=== PATIENT | male | born 1970 | race Caucasian/White ===

== ENCOUNTER → 2016-05-22 | Outpatient (CLI) | payer OTHER ==
[~2016-05-22] MED LIST: ISOVUE-370 76% 100ML VIAL (Q9967) As Ordered ONE
--- NOTE | 2016-05-22 18:05 | REP ---
Clinical: Abnormalities on recent chest x-ray. Technique: Axial contrast enhanced images from the thoracic inlet to the upper abdomen using 100 ml Isovue 370 intravenous contrast material with coronal and sagittal re-formations. Findings: The bilateral lung olmstead are essentially well-aerated, clear, and without consolidation, peribronchial thickening to suggest acute bronchitis, nodule or mass lesion. Tracheobronchial tree is patent and without bronchiectasis. No pleural effusion/reaction or pneumothorax. No adenopathy. Mediastinum including heart/pericardium and thoracic aorta appear relatively normal and without cardiomegaly or pericardial effusion and no evidence for thoracic aortic aneurysm or dissection. Musculoskeletal structures are intact. Limited evaluation of the upper abdomen demonstrates normal bilateral adrenal glands. Impression: No acute mediastinal or pleuroparenchymal process. No significant chronic interstitial changes appreciated. No evidence for residual bronchitis or reactive airway disease. Signed by Dick Dela Cruz MD 05/22/2016 05:57 P
== END ==
LOC: M RAD 17:15
PROVIDERS: ATTEND Physician Assistant
DX: R93.8 Abnormal findings on diagnostic imaging of other specified body structures (principal)
CPT/HCPCS: 71260; Q9967

== ENCOUNTER → 2016-08-07 | Outpatient (REF) | payer OTHER ==
[2016-08-07 18:35] LABS: ALBUMIN 3.8 GM/DL (3.2-5.2); ALBUMIN/GLOBULIN RATIO 1.09 (1.00-1.93); ALKALINE PHOSPHATASE 77 U/L (45-117); ALT/SGPT 31 U/L (12-78); ANION GAP 9 MEQ/L (8-16); AST/SGOT 24 U/L (15-37); BILIRUBIN,TOTAL 0.5 MG/DL (0.2-1.0); BLOOD UREA NITROGEN 13 MG/DL (7-18); CALCIUM LEVEL 9.2 MG/DL (8.5-10.1); CARBON DIOXIDE LEVEL 26 MEQ/L (21-32); CHLORIDE LEVEL 101 MEQ/L (98-107); CHOLESTEROL LEVEL 149 MG/DL (<200); CREATININE FOR GFR 1.03 MG/DL (0.70-1.30); GLOMERULAR FILTRATION RATE > 60.0 (>60); GLUCOSE, FASTING 110 MG/DL (70-105); POTASSIUM SERUM 4.3 MEQ/L (3.5-5.1); SODIUM LEVEL 136 MEQ/L (136-145); TOTAL PROTEIN 7.3 GM/DL (6.4-8.2); TRIGLYCERIDES LEVEL 96 MG/DL (<150)
[2016-08-07 19:02] LABS: BASO % 0.5 % (0.0-1.0); EOS # 0.2 K/mm3 (0.0-0.50); EOS % 2.3 % (0.0-3.0); LARGE UNSTAINED CELL # 0.2 K/mm3 (0.0-0.4); LARGE UNSTAINED CELL % 1.7 % (0.0-4.0); LYMPH # 2.1 K/mm3 (1.5-4.5); LYMPH % 22.6 % (24.0-44.0); MEAN CORPUSCULAR HEMOGLOBIN 31.1 pg (27.0-33.0); MEAN CORPUSCULAR HGB CONC 34.6 g/dl (32.0-36.5); MEAN CORPUSCULAR VOLUME 89.7 fl (80.0-96.0); MONO # 0.6 K/mm3 (0.0-0.8); MONO % 6.5 % (0.0-5.0); NEUTROPHILS # 5.7 K/mm3 (1.8-7.7); NEUTROPHILS % 66.3 % (36.0-66.0); PLATELET COUNT, AUTOMATED 247 k/mm3 (150-450); RED CELL DISTRIBUTION WIDTH 12.5 % (11.5-14.5); WHITE BLOOD COUNT 8.6 K/mm3 (4.0-10.0)
== END ==
LOC: M SFHCCAPE 07:03
PROVIDERS: ATTEND Physician Assistant
DX: E78.00 Pure hypercholesterolemia, unspecified (principal)

== ENCOUNTER → 2017-01-30 | Outpatient (CLI) | payer OTHER ==
[2017-01-30 17:05] LABS: BASO % 0.4 % (0.0-1.0); EOS # 0.1 K/mm3 (0.0-0.50); EOS % 1.2 % (0.0-3.0); LARGE UNSTAINED CELL # 0.2 K/mm3 (0.0-0.4); LARGE UNSTAINED CELL % 2.2 % (0.0-4.0); LYMPH # 1.4 K/mm3 (1.5-4.5); LYMPH % 17.4 % (24.0-44.0); MEAN CORPUSCULAR HEMOGLOBIN 31.1 pg (27.0-33.0); MEAN CORPUSCULAR VOLUME 86.5 fl (80.0-96.0); MONO # 0.6 K/mm3 (0.0-0.8); MONO % 6.7 % (0.0-5.0); NEUTROPHILS % 72.1 % (36.0-66.0); PLATELET COUNT, AUTOMATED 236 k/mm3 (150-450); RED CELL DISTRIBUTION WIDTH 11.8 % (11.5-14.5); WHITE BLOOD COUNT 8.2 K/mm3 (4.0-10.0)
--- NOTE | 2017-01-30 17:34 | REP ---
LEFT HIP, TWO VIEWS: There is no evidence of an acute fracture, dislocation or intrinsic bone disease. There is not significant arthritic change. IMPRESSION: No fracture or dislocation. Signed by Km Ruiz MD 01/31/2017 05:37 P
--- NOTE | 2017-01-30 17:43 | REP ---
LEFT KNEE, FIVE VIEWS: FINDINGS: There is no evidence of an acute fracture, dislocation or intrinsic bone disease. There is not significant arthritic change. There is no evidence of significant joint effusion. IMPRESSION: No fracture or dislocation. Signed by Km Ruiz MD 01/31/2017 05:37 P
[2017-01-30 19:27] LABS: ALBUMIN 3.7 GM/DL (3.2-5.2); ALBUMIN/GLOBULIN RATIO 0.95 (1.00-1.93); ALKALINE PHOSPHATASE 97 U/L (45-117); ALT/SGPT 42 U/L (12-78); ANION GAP 9 MEQ/L (8-16); AST/SGOT 20 U/L (15-37); BILIRUBIN,TOTAL 0.4 MG/DL (0.2-1.0); BLOOD UREA NITROGEN 16 MG/DL (7-18); CALCIUM LEVEL 9.5 MG/DL (8.5-10.1); CARBON DIOXIDE LEVEL 27 MEQ/L (21-32); CHLORIDE LEVEL 104 MEQ/L (98-107); CHOLESTEROL LEVEL 115 MG/DL (<200); GLOMERULAR FILTRATION RATE > 60.0 (>60); GLUCOSE, FASTING 101 MG/DL (70-105); POTASSIUM SERUM 3.9 MEQ/L (3.5-5.1); SODIUM LEVEL 140 MEQ/L (136-145); TOTAL PROTEIN 7.6 GM/DL (6.4-8.2); TRIGLYCERIDES LEVEL 95 MG/DL (<150); URIC ACID 4.2 MG/DL (3.5-7.2)
[2017-02-02 00:06] LABS: Lyme Disease IgG/IgM Antibodie <0.91 ISR (0.00-0.90); Lyme Disease IgM Ab Quantitati <0.80 index (0.00-0.79)
== END ==
LOC: M LAB 15:58
PROVIDERS: ATTEND Physician Assistant
DX: M25.562 Pain in left knee (principal)

== ENCOUNTER → 2017-03-28 | Outpatient (CLI) | payer OTHER | LOC: M RAD 10:36 | PROVIDERS: ATTEND Internal Medicine Endocrinology, Diabetes & Metabolism | DX: E05.00 Thyrotoxicosis with diffuse goiter without thyrotoxic crisis or storm (principal) ==

== ENCOUNTER → 2017-05-28 | Outpatient (CLI) | payer OTHER ==
[2017-05-28 18:57] LABS: FREE T4 0.38 NG/DL (0.76-1.46)
== END ==
LOC: M LAB 17:15
DX: M12.9 Arthropathy, unspecified (principal)
CPT/HCPCS: 84443

== ENCOUNTER → 2017-07-30 | Outpatient (CLI) | payer OTHER ==
[2017-07-30 20:20] LABS: THYROID STIMULATING HORMONE 0.018 uIU/ML (0.358-3.740)
[2017-07-30 20:20] LABS: FREE T4 1.29 NG/DL (0.76-1.46)
== END ==
LOC: M LAB 18:05
DX: E05.00 Thyrotoxicosis with diffuse goiter without thyrotoxic crisis or storm (principal)
CPT/HCPCS: 84443

== ENCOUNTER → 2017-08-01 | Outpatient (REF) | payer OTHER ==
[2017-08-01 16:46] LABS: ALBUMIN 3.8 GM/DL (3.2-5.2); ALKALINE PHOSPHATASE 107 U/L (45-117); ALT/SGPT 48 U/L (12-78); ANION GAP 9 MEQ/L (8-16); AST/SGOT 23 U/L (7-37); BILIRUBIN,TOTAL 0.5 MG/DL (0.2-1.0); BLOOD UREA NITROGEN 12 MG/DL (7-18); CARBON DIOXIDE LEVEL 27 MEQ/L (21-32); CHLORIDE LEVEL 101 MEQ/L (98-107); CHOLESTEROL LEVEL 130 MG/DL (<200); CHOLESTEROL RISK RATIO 2.954 (<5); CREATININE FOR GFR 1.09 MG/DL (0.70-1.30); FREE T4 1.32 NG/DL (0.76-1.46); GLOMERULAR FILTRATION RATE > 60.0 (>60); GLUCOSE, FASTING 116 MG/DL (70-100); HDL CHOLESTEROL 44 MG/DL (>40); LDL CHOLESTEROL 73.2 MG/DL (<100); NON-HDL-C 86 MG/DL; POTASSIUM SERUM 3.8 MEQ/L (3.5-5.1); SODIUM LEVEL 137 MEQ/L (136-145); THYROID STIMULATING HORMONE 0.012 uIU/ML (0.358-3.740); TOTAL PROTEIN 7.6 GM/DL (6.4-8.2); TRIGLYCERIDES LEVEL 64 MG/DL (<150)
[2017-08-01 17:14] LABS: BASO # 0.1 10^3/uL (0.0-0.2); BASO % 0.5 % (0.0-1.0); EOS # 0.2 10^3/uL (0.0-0.50); EOS % 1.5 % (0.0-3.0); HEMATOCRIT 39.7 % (42.0-52.0); HEMOGLOBIN 13.3 g/dl (14.0-18.0); IMMATURE GRANULOCYTE % 0.9 % (0-3.0); LYMPH # 1.4 10^3/uL (1.5-4.5); MEAN CORPUSCULAR HEMOGLOBIN 30.3 pg (27.0-33.0); MEAN CORPUSCULAR HGB CONC 33.5 g/dl (32.0-36.5); MEAN CORPUSCULAR VOLUME 90.4 fl (80.0-96.0); MONO # 0.8 10^3/uL (0.0-0.8); MONO % 7.8 % (0.0-5.0); NEUTROPHILS # 8.1 10^3/uL (1.8-7.7); NEUTROPHILS % 76.3 % (36.0-66.0); PLATELET COUNT, AUTOMATED 295 10^3/uL (150-450); RED BLOOD COUNT 4.39 10^6/uL (4.30-6.10); RED CELL DISTRIBUTION WIDTH 14.6 % (11.5-14.5); WHITE BLOOD COUNT 10.6 10^3/uL (4.0-10.0)
== END ==
LOC: M SFHCCAPE 07:13
DX: E78.00 Pure hypercholesterolemia, unspecified (principal)

== ENCOUNTER → 2017-10-09 | Outpatient (CLI) | payer OTHER ==
[2017-10-10 11:55] LABS: FREE T4 1.24 NG/DL (0.76-1.46)
[2017-10-10 11:55] LABS: THYROID STIMULATING HORMONE 0.013 uIU/ML (0.358-3.740)
== END ==
LOC: M LAB 17:30
DX: E89.0 Postprocedural hypothyroidism (principal)
CPT/HCPCS: 84443

== ENCOUNTER → 2017-12-24 | Outpatient (CLI) | payer OTHER ==
[2017-12-24 18:25] LABS: BASO # 0.1 10^3/uL (0.0-0.2); BASO % 0.7 % (0.0-1.0); EOS # 0.2 10^3/uL (0.0-0.50); EOS % 2.8 % (0.0-3.0); HEMATOCRIT 38.9 % (42.0-52.0); HEMOGLOBIN 13.7 g/dl (13.5-17.5); IMMATURE GRANULOCYTE % 0.4 % (0-3.0); LYMPH # 1.8 10^3/uL (1.5-4.5); LYMPH % 27.1 % (24.0-44.0); MEAN CORPUSCULAR HEMOGLOBIN 32.4 pg (27.0-33.0); MEAN CORPUSCULAR HGB CONC 35.2 g/dl (32.0-36.5); MONO # 0.8 10^3/uL (0.0-0.8); MONO % 11.5 % (0.0-5.0); NEUTROPHILS # 3.8 10^3/uL (1.8-7.7); NEUTROPHILS % 57.5 % (36.0-66.0); PLATELET COUNT, AUTOMATED 206 10^3/uL (150-450); RED BLOOD COUNT 4.23 10^6/uL (4.30-6.10); RED CELL DISTRIBUTION WIDTH 13.1 % (11.5-14.5); WHITE BLOOD COUNT 6.7 10^3/uL (4.0-10.0)
[2017-12-24 18:55] LABS: ALT/SGPT 44 U/L (12-78); AST/SGOT 25 U/L (7-37); C REACTIVE PROTEIN QUANTITATIV 0.93 MG/DL (0.00-0.30); CREATININE FOR GFR 1.16 MG/DL (0.70-1.30); GLOMERULAR FILTRATION RATE > 60.0 (>60)
[2017-12-24 18:55] LABS: BLOOD UREA NITROGEN 19 MG/DL (7-18)
[2017-12-24 20:45] LABS: ERYTHROCYTE SEDIMENTATION RATE 30 mm/hr (0-15)
== END ==
LOC: M LAB 17:58
DX: M06.09 Rheumatoid arthritis without rheumatoid factor, multiple sites (principal); Z79.899 Other long term (current) drug therapy
CPT/HCPCS: 84460

== ENCOUNTER → 2018-01-20 | Outpatient (REF) | payer OTHER ==
[2018-01-20 16:38] LABS: BASO % 0.5 % (0.0-1.0); EOS # 0.1 10^3/uL (0.0-0.50); EOS % 1.5 % (0.0-3.0); HEMATOCRIT 40.4 % (42.0-52.0); HEMOGLOBIN 13.9 g/dl (13.5-17.5); IMMATURE GRANULOCYTE % 0.6 % (0-3.0); LYMPH # 1.7 10^3/uL (1.5-4.5); LYMPH % 20.1 % (24.0-44.0); MEAN CORPUSCULAR HEMOGLOBIN 32.3 pg (27.0-33.0); MEAN CORPUSCULAR HGB CONC 34.4 g/dl (32.0-36.5); MONO # 0.5 10^3/uL (0.0-0.8); MONO % 5.6 % (0.0-5.0); NEUTROPHILS # 6.1 10^3/uL (1.8-7.7); NEUTROPHILS % 71.7 % (36.0-66.0); PLATELET COUNT, AUTOMATED 272 10^3/uL (150-450); RED CELL DISTRIBUTION WIDTH 13.1 % (11.5-14.5); WHITE BLOOD COUNT 8.5 10^3/uL (4.0-10.0)
[2018-01-20 16:53] LABS: AMORPHOUS SEDIMENT LARGE (NEGATIVE); APPEARANCE, URINE TURBID (CLEAR); BACTERIA, URINE AUTO NEGATIVE (NEGATIVE); BILIRUBIN, URINE AUTO 1+ (NEGATIVE); BLOOD, URINE BLOOD NEGATIVE (NEGATIVE); COLOR, URINE YELLOW (YELLOW); GLUCOSE, URINE (UA) AUTO NEGATIVE (NEGATIVE); KETONE, URINE AUTO NEGATIVE (NEGATIVE); LEUKOCYTE ESTERASE, URINE AUTO NEGATIVE (NEGATIVE); MUCUS, URINE LARGE (NEGATIVE); NITRITE, URINE AUTO NEGATIVE (NEGATIVE); PROTEIN, URINE AUTO 1+ mg/dL (NEGATIVE); RBC, URINE AUTO 0 /HPF (0-3); SQUAMOUS EPITHELIAL CELL UR AU 2 /HPF (0-6); WBC, URINE AUTO 0 /HPF (0-3)
[2018-01-21 00:23] LABS: ALBUMIN 3.7 GM/DL (3.2-5.2); ALKALINE PHOSPHATASE 95 U/L (45-117); ALT/SGPT 101 U/L (12-78); AMYLASE 40 U/L (25-115); ANION GAP 10 MEQ/L (8-16); AST/SGOT 38 U/L (7-37); BILIRUBIN,TOTAL 0.4 MG/DL (0.2-1.0); BLOOD UREA NITROGEN 16 MG/DL (7-18); CALCIUM LEVEL 9.2 MG/DL (8.5-10.1); CARBON DIOXIDE LEVEL 25 MEQ/L (21-32); CHLORIDE LEVEL 102 MEQ/L (98-107); CREATININE FOR GFR 1.12 MG/DL (0.70-1.30); FREE T4 0.42 NG/DL (0.76-1.46); GLOMERULAR FILTRATION RATE > 60.0 (>60); GLUCOSE, FASTING 84 MG/DL (70-100); POTASSIUM SERUM 3.9 MEQ/L (3.5-5.1); SODIUM LEVEL 137 MEQ/L (136-145); TOTAL PROTEIN 7.8 GM/DL (6.4-8.2)
[2018-01-21 00:44] LABS: ALBUMIN/GLOBULIN RATIO 1.11 (1.00-1.93)
[2018-01-21 00:59] LABS: LIPASE 81 U/L (73-393)
[2018-01-21 01:00] LABS: ESTIMATED AVERAGE GLUCOSE 117 MG/DL (60-110); HEMOGLOBIN A1c 5.7 %
== END ==
LOC: M SFHCCAPE 10:01
DX: R10.32 Left lower quadrant pain (principal); R73.01 Impaired fasting glucose

== ENCOUNTER → 2018-01-24 | Outpatient (CLI) | payer OTHER ==
[~2018-01-24] MED LIST changes: +GASTROGRAFIN SOLUTION 30ML (Q9963) As Ordered; +ISOVUE-370 76% 100ML VIAL (Q9967) As Ordered; -ISOVUE-370 76% 100ML VIAL (Q9967) As Ordered ONE
== END ==
LOC: M RAD 14:07
DX: R10.32 Left lower quadrant pain (principal); R93.3 Abnormal findings on diagnostic imaging of other parts of digestive tract
CPT/HCPCS: Q9963

== ENCOUNTER → 2018-02-04 | Outpatient (REF) | payer OTHER ==
[2018-02-04 19:22] LABS: BASO # 0.1 10^3/uL (0.0-0.2); BASO % 1.3 % (0.0-1.0); EOS # 0.1 10^3/uL (0.0-0.50); EOS % 2.4 % (0.0-3.0); HEMATOCRIT 42.4 % (42.0-52.0); HEMOGLOBIN 14.3 g/dl (13.5-17.5); IMMATURE GRANULOCYTE % 0.5 % (0-3.0); LYMPH # 1.5 10^3/uL (1.5-4.5); LYMPH % 26.7 % (24.0-44.0); MEAN CORPUSCULAR HEMOGLOBIN 32.2 pg (27.0-33.0); MEAN CORPUSCULAR HGB CONC 33.7 g/dl (32.0-36.5); MEAN CORPUSCULAR VOLUME 95.5 fl (80.0-96.0); MONO # 0.4 10^3/uL (0.0-0.8); MONO % 7.7 % (0.0-5.0); NEUTROPHILS # 3.4 10^3/uL (1.8-7.7); NEUTROPHILS % 61.4 % (36.0-66.0); PLATELET COUNT, AUTOMATED 300 10^3/uL (150-450); RED BLOOD COUNT 4.44 10^6/uL (4.30-6.10); RED CELL DISTRIBUTION WIDTH 13.5 % (11.5-14.5); WHITE BLOOD COUNT 5.5 10^3/uL (4.0-10.0)
[2018-02-04 20:03] LABS: ALBUMIN/GLOBULIN RATIO 1.18 (1.00-1.93); ALKALINE PHOSPHATASE 100 U/L (45-117); ALT/SGPT 103 U/L (12-78); ANION GAP 9 MEQ/L (8-16); AST/SGOT 41 U/L (7-37); BILIRUBIN,DIRECT 0.2 MG/DL (0.0-0.2); BILIRUBIN,TOTAL 0.5 MG/DL (0.2-1.0); BLOOD UREA NITROGEN 16 MG/DL (7-18); CARBON DIOXIDE LEVEL 27 MEQ/L (21-32); CHLORIDE LEVEL 102 MEQ/L (98-107); CHOLESTEROL LEVEL 154 MG/DL (<200); CREATININE FOR GFR 1.09 MG/DL (0.70-1.30); GLOMERULAR FILTRATION RATE > 60.0 (>60); GLUCOSE, FASTING 100 MG/DL (70-100); HDL CHOLESTEROL 50 MG/DL (>40); LDL CHOLESTEROL 87 MG/DL (<100); NON-HDL-C 104 MG/DL; POTASSIUM SERUM 4.5 MEQ/L (3.5-5.1); SODIUM LEVEL 138 MEQ/L (136-145); TOTAL PROTEIN 7.4 GM/DL (6.4-8.2); TRIGLYCERIDES LEVEL 83 MG/DL (<150)
[2018-02-04 22:36] LABS: ESTIMATED AVERAGE GLUCOSE 128 MG/DL (60-110); HEMOGLOBIN A1c 6.1 %
[2018-02-05 10:09] LABS: HEPATITIS B SURFACE ANTIGEN NEGATIVE (NEGATIVE)
[2018-02-05 10:17] LABS: HEPATITIS C VIRUS ABY INDEX 0.2 INDEX (<0.8)
[2018-02-05 10:18] LABS: HEPATITIS B CORE ANTIBODY IGM NEGATIVE (NEGATIVE)
[2018-02-05 10:19] LABS: HEPATITIS A ANTIBODY IGM NEGATIVE (NEGATIVE)
== END ==
LOC: M SFHCCAPE 07:34
DX: E78.00 Pure hypercholesterolemia, unspecified (principal); R74.8 Abnormal levels of other serum enzymes; R73.01 Impaired fasting glucose

== ENCOUNTER 2018-02-19 08:33 | Day surgery (SDC) | payer OTHER ==
[2018-02-19] MEDS: NS 1,000 ML IV (06:00)
[~2018-02-19 08:33] MED LIST changes: -GASTROGRAFIN SOLUTION 30ML (Q9963) As Ordered; -ISOVUE-370 76% 100ML VIAL (Q9967) As Ordered; +NS 1,000 ML IV; +PROPOFOL 200 MG/20 ML VIAL As Ordered
[2018-02-19] MEDS ORDERED: METHYLENE BLUE 0.5% (5MG/ML) 10 ML AMP (PROVAYBLUE)(Q9968 PER 1MG) As Ordered (09:13)
[2018-02-19] MEDS ORDERED: BUPIVACAINE HCL 0.25% 30 ML VIAL As Ordered (09:13)
== END 2018-02-19 10:22 | disposition home or self-care (01) ==
LOC: M OPP 08:33
DX: R93.3 Abnormal findings on diagnostic imaging of other parts of digestive tract (principal); K57.12 Diverticulitis of small intestine without perforation or abscess without bleeding; K62.89 Other specified diseases of anus and rectum; K63.89 Other specified diseases of intestine; K64.8 Other hemorrhoids; E78.5 Hyperlipidemia, unspecified; E03.9 Hypothyroidism, unspecified; M06.9 Rheumatoid arthritis, unspecified; Z92.3 Personal history of irradiation; R06.83 Snoring; Z87.891 Personal history of nicotine dependence; Z88.0 Allergy status to penicillin; Z79.899 Other long term (current) drug therapy
CPT/HCPCS: 45380

== ENCOUNTER → 2018-03-25 | Outpatient (REF) | payer OTHER ==
[2018-03-25 17:40] LABS: ALBUMIN 3.8 GM/DL (3.2-5.2); ALBUMIN/GLOBULIN RATIO 1.09 (1.00-1.93); ALKALINE PHOSPHATASE 93 U/L (45-117); ALT/SGPT 118 U/L (12-78); ANION GAP 7 MEQ/L (8-16); AST/SGOT 42 U/L (7-37); BILIRUBIN,TOTAL 0.5 MG/DL (0.2-1.0); BLOOD UREA NITROGEN 16 MG/DL (7-18); CALCIUM LEVEL 8.9 MG/DL (8.5-10.1); CARBON DIOXIDE LEVEL 27 MEQ/L (21-32); CHLORIDE LEVEL 103 MEQ/L (98-107); CREATININE FOR GFR 0.92 MG/DL (0.70-1.30); FREE T4 1.52 NG/DL (0.76-1.46); GAMMA GLUTAMYLTRANSPEPTIDASE 94 U/L (15-85); GLOMERULAR FILTRATION RATE > 60.0 (>60); GLUCOSE, FASTING 100 MG/DL (70-100); SODIUM LEVEL 137 MEQ/L (136-145); THYROID STIMULATING HORMONE 0.086 uIU/ML (0.358-3.740); TOTAL PROTEIN 7.3 GM/DL (6.4-8.2)
== END ==
LOC: M SFHCCAPE 07:04
DX: R74.8 Abnormal levels of other serum enzymes (principal); E89.0 Postprocedural hypothyroidism

== ENCOUNTER → 2018-04-14 | Outpatient (CLI) | payer OTHER ==
[2018-04-14 16:33] LABS: AST/SGOT 19 U/L (7-37)
[2018-04-14 16:33] LABS: ALT/SGPT 37 U/L (12-78)
[2018-04-14 16:44] LABS: ERYTHROCYTE SEDIMENTATION RATE 41 mm/hr (0-15)
== END ==
LOC: M LAB 15:10
DX: R79.89 Other specified abnormal findings of blood chemistry (principal)
CPT/HCPCS: 84460

== ENCOUNTER → 2018-04-14 | Outpatient (CLI) | payer OTHER ==
[2018-04-14 19:45] LABS: ERYTHROCYTE SEDIMENTATION RATE 41 mm/hr (0-15)
[2018-04-15 15:43] LABS: ALBUMIN 3.8 GM/DL (3.2-5.2); ALKALINE PHOSPHATASE 105 U/L (45-117); ALT/SGPT 37 U/L (12-78); AST/SGOT 17 U/L (7-37); BILIRUBIN,DIRECT 0.2 MG/DL (0.0-0.2); BILIRUBIN,TOTAL 0.5 MG/DL (0.2-1.0); CHOLESTEROL LEVEL 139 MG/DL (<200); CHOLESTEROL RISK RATIO 3.657 (<5); HDL CHOLESTEROL 38 MG/DL (>40); LDL CHOLESTEROL 85 MG/DL (<100); NON-HDL-C 101 MG/DL; TOTAL PROTEIN 7.6 GM/DL (6.4-8.2); TRIGLYCERIDES LEVEL 78 MG/DL (<150)
[2018-04-16 11:09] LABS: HEPATITIS B SURFACE ANTIBODY NEGATIVE (POSITIVE)
[2018-04-16 11:49] LABS: HEPATITIS C VIRUS ABY INDEX 0.1 INDEX (<0.8)
== END ==
LOC: M LAB 15:05
DX: R10.30 Lower abdominal pain, unspecified (principal)
CPT/HCPCS: 80076; 86255

== ENCOUNTER → 2018-05-20 | Outpatient (REF) | payer OTHER ==
[~2018-05-20] MED LIST changes: +ATOR1TAB19 PO; +FOLI1TAB11 PO; +IBUP200C25 PO; +LEVO150T42 PO; +METH2.5T48 PO; -NS 1,000 ML IV; -PROPOFOL 200 MG/20 ML VIAL As Ordered; +RANI1TAB6 PO
== END ==
LOC: M SFHCCAPE 13:25
PROVIDERS: ATTEND Physician Assistant
DX: J02.9 Acute pharyngitis, unspecified (principal)

== ENCOUNTER → 2018-06-30 | Outpatient (REF) | payer OTHER ==
[2018-06-30 16:29] LABS: BASO # 0.1 10^3/uL (0.0-0.2); BASO % 0.9 % (0.0-1.0); EOS # 0.2 10^3/uL (0.0-0.50); EOS % 3.2 % (0.0-3.0); HEMOGLOBIN 15.1 g/dl (13.5-17.5); LYMPH # 1.7 10^3/uL (1.5-4.5); LYMPH % 28.2 % (24.0-44.0); MEAN CORPUSCULAR HEMOGLOBIN 30.8 pg (27.0-33.0); MEAN CORPUSCULAR HGB CONC 34.3 g/dl (32.0-36.5); MEAN CORPUSCULAR VOLUME 89.6 fl (80.0-96.0); MONO # 0.5 10^3/uL (0.0-0.8); MONO % 8.2 % (0.0-5.0); NEUTROPHILS # 3.5 10^3/uL (1.8-7.7); NEUTROPHILS % 59.3 % (36.0-66.0); PLATELET COUNT, AUTOMATED 221 10^3/uL (150-450); RED BLOOD COUNT 4.91 10^6/uL (4.30-6.10); WHITE BLOOD COUNT 5.9 10^3/uL (4.0-10.0)
[2018-06-30 16:43] LABS: ALBUMIN 3.6 GM/DL (3.2-5.2); ALT/SGPT 54 U/L (12-78); BILIRUBIN,DIRECT < 0.1 MG/DL (0.0-0.2); BILIRUBIN,TOTAL 0.3 MG/DL (0.2-1.0); BLOOD UREA NITROGEN 12 MG/DL (7-18); CALCIUM LEVEL 8.8 MG/DL (8.5-10.1); CARBON DIOXIDE LEVEL 26 MEQ/L (21-32); CHLORIDE LEVEL 102 MEQ/L (98-107); CHOLESTEROL LEVEL 155 MG/DL (<200); CREATININE FOR GFR 0.99 MG/DL (0.70-1.30); FREE T4 1.28 NG/DL (0.76-1.46); GLOMERULAR FILTRATION RATE > 60.0 (>60); GLUCOSE, FASTING 107 MG/DL (70-100); HDL CHOLESTEROL 42 MG/DL (>40); HEMOGLOBIN A1c 6.2 %; LDL CHOLESTEROL 99 MG/DL (<100); NON-HDL-C 113 MG/DL; SODIUM LEVEL 137 MEQ/L (136-145); TOTAL PROTEIN 7.5 GM/DL (6.4-8.2); TRIGLYCERIDES LEVEL 72 MG/DL (<150)
== END ==
LOC: M SFHCCAPE 07:06
PROVIDERS: ATTEND Physician Assistant
DX: R74.8 Abnormal levels of other serum enzymes (principal); E89.0 Postprocedural hypothyroidism; R73.01 Impaired fasting glucose; E78.00 Pure hypercholesterolemia, unspecified

== ENCOUNTER → 2018-08-21 | Outpatient (CLI) | payer OTHER ==
[2018-08-21 20:20] LABS: ALBUMIN 3.8 GM/DL (3.2-5.2); ALT/SGPT 40 U/L (12-78); BILIRUBIN,DIRECT < 0.1 MG/DL (0.0-0.2); BILIRUBIN,TOTAL 0.3 MG/DL (0.2-1.0); C REACTIVE PROTEIN QUANTITATIV 1.75 MG/DL (0.00-0.30); TOTAL PROTEIN 7.5 GM/DL (6.4-8.2)
== END ==
LOC: M LAB 18:45
PROVIDERS: ATTEND Internal Medicine Gastroenterology
DX: K52.3 Indeterminate colitis (principal)

== ENCOUNTER → 2018-10-07 | Outpatient (REF) | payer OTHER ==
[2018-10-07 18:22] LABS: ALBUMIN 3.6 GM/DL (3.2-5.2); ALT/SGPT 34 U/L (12-78); BILIRUBIN,TOTAL 0.7 MG/DL (0.2-1.0); BLOOD UREA NITROGEN 21 MG/DL (7-18); CALCIUM LEVEL 8.5 MG/DL (8.5-10.1); CARBON DIOXIDE LEVEL 27 MEQ/L (21-32); CHLORIDE LEVEL 101 MEQ/L (98-107); CREATININE FOR GFR 1.01 MG/DL (0.70-1.30); FREE T4 1.17 NG/DL (0.76-1.46); GLOMERULAR FILTRATION RATE > 60.0 (>60); GLUCOSE, FASTING 95 MG/DL (70-100); POTASSIUM SERUM 3.9 MEQ/L (3.5-5.1); SODIUM LEVEL 137 MEQ/L (136-145); TOTAL PROTEIN 7.6 GM/DL (6.4-8.2)
[2018-10-07 19:01] LABS: HEMOGLOBIN A1c 6.2 %
== END ==
LOC: M SFHCCAPE 07:34
PROVIDERS: ATTEND Physician Assistant
DX: R74.8 Abnormal levels of other serum enzymes (principal); E89.0 Postprocedural hypothyroidism; R73.01 Impaired fasting glucose

== ENCOUNTER → 2018-12-13 | Outpatient (CLI) | payer OTHER ==
[~2018-12-13] MED LIST changes: +BUDE3CAP PO; +CELE100C PO; +MESA800T8 PO
[2018-12-13 17:02] LABS: BLOOD UREA NITROGEN 16 MG/DL (7-18); CARBON DIOXIDE LEVEL 29 MEQ/L (21-32); CHLORIDE LEVEL 102 MEQ/L (98-107); CREATININE FOR GFR 0.93 MG/DL (0.70-1.30); GLOMERULAR FILTRATION RATE > 60.0 (>60); GLUCOSE, FASTING 103 MG/DL (70-100); POTASSIUM SERUM 3.9 MEQ/L (3.5-5.1); SODIUM LEVEL 137 MEQ/L (136-145)
[2018-12-13 17:08] LABS: BASO % 0.2 % (0.0-1.0); EOS # 0.1 10^3/uL (0.0-0.50); HEMATOCRIT 38.9 % (42.0-52.0); HEMOGLOBIN 12.7 g/dl (13.5-17.5); LYMPH # 1.4 10^3/uL (1.5-4.5); LYMPH % 15.9 % (24.0-44.0); MEAN CORPUSCULAR HEMOGLOBIN 29.8 pg (27.0-33.0); MEAN CORPUSCULAR HGB CONC 32.6 g/dl (32.0-36.5); MEAN CORPUSCULAR VOLUME 91.3 fl (80.0-96.0); MONO # 0.8 10^3/uL (0.0-0.8); MONO % 9.1 % (0.0-5.0); NEUTROPHILS # 6.4 10^3/uL (1.8-7.7); NEUTROPHILS % 73.5 % (36.0-66.0); PLATELET COUNT, AUTOMATED 234 10^3/uL (150-450); RED BLOOD COUNT 4.26 10^6/uL (4.30-6.10); WHITE BLOOD COUNT 8.8 10^3/uL (4.0-10.0)
== END ==
LOC: M WUC 09:39
PROVIDERS: ATTEND Nurse Practitioner Family
DX: R80.9 Proteinuria, unspecified (principal)

== ENCOUNTER → 2018-12-15 | Outpatient (REF) | payer OTHER ==
[2018-12-15 17:24] LABS: APPEARANCE, URINE CLOUDY (CLEAR); BACTERIA, URINE AUTO 1+ (NEGATIVE); BILIRUBIN, URINE AUTO NEGATIVE (NEGATIVE); BLOOD, URINE BLOOD NEGATIVE (NEGATIVE); COLOR, URINE AMBER (YELLOW); GLUCOSE, URINE (UA) AUTO NEGATIVE (NEGATIVE); KETONE, URINE AUTO NEGATIVE (NEGATIVE); LEUKOCYTE ESTERASE, URINE AUTO NEGATIVE (NEGATIVE); MUCUS, URINE SMALL (NEGATIVE); NITRITE, URINE AUTO NEGATIVE (NEGATIVE); PROTEIN, URINE AUTO 3+ mg/dL (NEGATIVE); RBC, URINE AUTO 5 /HPF (0-3); SPECIFIC GRAVITY URINE AUTO 1.028 (1.002-1.035); SQUAMOUS EPITHELIAL CELL UR AU 1 /HPF (0-6); WBC, URINE AUTO 4 /HPF (0-3)
[2018-12-15 17:35] LABS: BASO # 0.1 10^3/uL (0.0-0.2); BASO % 0.6 % (0.0-1.0); EOS # 0.1 10^3/uL (0.0-0.50); EOS % 1.7 % (0.0-3.0); HEMATOCRIT 37.2 % (42.0-52.0); HEMOGLOBIN 12.4 g/dl (13.5-17.5); LYMPH # 1.6 10^3/uL (1.5-4.5); LYMPH % 19.5 % (24.0-44.0); MEAN CORPUSCULAR HEMOGLOBIN 29.3 pg (27.0-33.0); MEAN CORPUSCULAR HGB CONC 33.3 g/dl (32.0-36.5); MEAN CORPUSCULAR VOLUME 87.9 fl (80.0-96.0); MONO # 0.7 10^3/uL (0.0-0.8); MONO % 9.1 % (0.0-5.0); NEUTROPHILS # 5.5 10^3/uL (1.8-7.7); NEUTROPHILS % 68.9 % (36.0-66.0); PLATELET COUNT, AUTOMATED 268 10^3/uL (150-450); RED BLOOD COUNT 4.23 10^6/uL (4.30-6.10); WHITE BLOOD COUNT 8.1 10^3/uL (4.0-10.0)
[2018-12-15 17:48] LABS: ALBUMIN 3.1 GM/DL (3.2-5.2); ALT/SGPT 44 U/L (12-78); BILIRUBIN,TOTAL 0.5 MG/DL (0.2-1.0); BLOOD UREA NITROGEN 16 MG/DL (7-18); CALCIUM LEVEL 8.8 MG/DL (8.5-10.1); CARBON DIOXIDE LEVEL 29 MEQ/L (21-32); CHLORIDE LEVEL 112 MEQ/L (98-107); CREATININE FOR GFR 0.96 MG/DL (0.70-1.30); GLOMERULAR FILTRATION RATE > 60.0 (>60); GLUCOSE, FASTING 108 MG/DL (70-100); LIPASE 58 U/L (73-393); SODIUM LEVEL 151 MEQ/L (136-145); TOTAL PROTEIN 7.4 GM/DL (6.4-8.2)
== END ==
LOC: M SFHCCAPE 11:16
PROVIDERS: ATTEND Physician Assistant
DX: R30.0 Dysuria (principal)

== ENCOUNTER → 2018-12-17 | Outpatient (CLI) | payer OTHER ==
[~2018-12-17] MED LIST changes: +CIPR-249 PO; +METR-265 PO; +NEOM500T PO; +PERCOCET PO; +RANI-397 PO; -RANI1TAB6 PO
--- NOTE | 2018-12-18 04:35 | REP ---
Clinical: Proteinuria and dysuria. Technique: Real time savage scale ultrasound examination using curved array transducer. Findings: The bilateral kidneys are normal in contour, size, echogenicity, and reniform shape without hydronephrosis, nephrolithiasis, cystic or renal mass lesion. Right kidney measures 10.5 x 5.5 x 5.8 cm. Left kidney measures 10.6 x 5.5 x 6.0 cm. The prostate gland is mildly enlarged and measures 4.3 x 3.4 x 4.0 cm (31 ml). The bladder demonstrates wall thickening as well as an ovoid hypoechoic avascular lesion along the superior aspect measuring approximately 3.8 x 2.6 x 3.9 cm for which further investigation may be warranted. Impression: 1. Normal bilateral kidneys. 2. Hypoechoic avascular lesion inseparable from the superior aspect of the bladder. Findings otherwise nonspecific by ultrasound and contrast enhanced CT may be warranted for further investigation. Electronically Signed by Dick Dela Cruz MD 12/18/2018 04:25 A
== END ==
LOC: M RAD 16:14
PROVIDERS: ATTEND Physician Assistant
DX: R30.0 Dysuria (principal); R10.2 Pelvic and perineal pain; R80.9 Proteinuria, unspecified

== ENCOUNTER → 2018-12-22 | Outpatient (CLI) | payer OTHER ==
[~2018-12-22] MED LIST changes: -CIPR-249 PO; +GASTROGRAFIN SOLUTION 30ML (Q9963) As Ordered ONE; +ISOVUE-370 76% 100ML VIAL (Q9967) As Ordered ONE; -METR-265 PO; -NEOM500T PO; -PERCOCET PO; -RANI-397 PO; +RANI1TAB6 PO
--- NOTE | 2018-12-23 08:09 | REP ---
REASON: Left lower quadrant pain. Latest prior comparison is 01/24/2018. CONTRAST: 100 mL Isovue 370. By history, there is also an abnormal pelvic ultrasound, however, I have no prior pelvic ultrasound to review. The lung bases are clear. The liver, gallbladder, spleen, pancreas, adrenal glands and kidneys are within normal limits. The abdominal aorta and para-aortic regions are within normal limits. The intra-abdominal bowel loops and their mesenteries are within normal limits. There is no free fluid or free air. CT PELVIS: In the left hemipelvis abutting the montejo of the sigmoid colon and the urinary bladder wall, there is a 3.5 cm sized air-fluid collection with thickened montejo. There is a desmoplastic reaction arising from the antimesenteric side of the sigmoid colon abutting it and the aforementioned air fluid level. There is no pelvic sidewall adenopathy. Bone window technique throughout the examination shows the osseous structures to be within normal limits. IMPRESSION: Abnormal findings involving the pelvis as described above with a loculated air fluid level and evidence of mesenteric desmoplasia. I cannot rule out the possibility of an enterovesical fistula and/or a pelvis mesenteric abscess. The etiology of the finding is uncertain with potential possibilities including but are not limited to chronic diverticular disease, neoplastic change, or carcinoid. The exam needs to be correlated clinically with close followup. Surgical consultation is recommended. Electronically Signed by Ben Thompson DO 12/23/2018 12:00 P
== END ==
LOC: M RAD 13:52
PROVIDERS: ATTEND Physician Assistant
DX: R93.89 Abnormal findings on diagnostic imaging of other specified body structures (principal); R10.32 Left lower quadrant pain
CPT/HCPCS: 74177; Q9963; Q9967

== ENCOUNTER → 2019-01-16 | Outpatient (CLI) | payer OTHER ==
[~2019-01-16] MED LIST changes: +CIPR-249 PO; -GASTROGRAFIN SOLUTION 30ML (Q9963) As Ordered ONE; -ISOVUE-370 76% 100ML VIAL (Q9967) As Ordered ONE; +METR-265 PO; +NEOM500T PO; +PERCOCET PO; +RANI-356 PO; -RANI1TAB6 PO
--- NOTE | 2019-01-16 19:26 | ECGEPIP ---
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
== END ==
LOC: M EKG 16:28
PROVIDERS: ATTEND Surgery
DX: Z01.818 Encounter for other preprocedural examination (principal); K57.20 Diverticulitis of large intestine with perforation and abscess without bleeding

== ENCOUNTER 2019-01-22 05:50 | Inpatient (IN) | payer OTHER ==
[~2019-01-22] VITALS: Ht 177.8 cm; Wt 93.0 kg
[2019-01-22] VITALS (8 sets, daily range): BP systolic 103–137; BP diastolic 62–83
[~2019-01-22 05:50] MED LIST changes: -NEOM500T PO; -PERCOCET PO
[2019-01-22] MEDS ORDERED: HEPARIN SOD (PORCINE) 5000 UNITS/ML VIAL SQ ONE (06:00)
[2019-01-22] MEDS ORDERED: LR 1,000 ML IV ONE (06:00)
[2019-01-22] MEDS ORDERED: metroNIDAZOLE 500 MG in IV 1 EA IV ONE (06:00)
[2019-01-22] MEDS ORDERED: LevoFLOXacin IV 500 MG in IV 1 EA IV ONE (06:00)
[2019-01-22] MEDS ORDERED: ALVIMOPAN 12 MG CAPSULE (ENTEREG) PO ONE (06:00)
[2019-01-22] MEDS ORDERED: NEOM500T PO (06:42)
[2019-01-22] MEDS ORDERED: BUPIVACAINE HCL 0.25% 30 ML VIAL As Ordered ONE (06:58)
[2019-01-22] MEDS ORDERED: LIDOCAINE 1% SDV INJ 30 ML VIAL As Ordered ONE (06:58)
[2019-01-22] MEDS ORDERED: PROPOFOL 200 MG/20 ML VIAL As Ordered ONE (06:59)
[2019-01-22] MEDS ORDERED: LIDOCAINE 2% INJ 100 MG/5 ML SDV (FOR ANES.) As Ordered ONE (06:59)
[2019-01-22] MEDS ORDERED: ONDANSETRON 4MG/2ML VIAL (J2405) As Ordered ONE (06:59)
[2019-01-22] MEDS ORDERED: ROCURONIUM BROMIDE 50 MG/5 ML VIAL As Ordered ONE ×3 (06:59→10:32)
[2019-01-22] MEDS ORDERED: dexameTHASONE 4 MG/ML 1ML VIAL (J1100) As Ordered ONE (06:59)
[2019-01-22] MEDS ORDERED: fentaNYL 250 MCG/5 ML INJECTION (J3010) As Ordered ONE (07:04)
[2019-01-22] MEDS ORDERED: MIDAZOLAM INJ 2 MG/2 ML VIAL (J2250) As Ordered ONE (07:04)
[2019-01-22] MEDS ORDERED: ACETAMINOPHEN 1000MG 100ML IV BTL (OFIRMEV) (J0131 PER 10MG) As Ordered ONE (07:07)
[2019-01-22] MEDS ORDERED: LACRILUBE (AKWA TEARS) OPHTH OINT 3.5 GM As Ordered ONE (07:41)
[2019-01-22] MEDS ORDERED: SUGAMMADEX SODIUM 500 MG/5 ML VIAL (BRIDION) As Ordered ONE (08:16)
--- NOTE | 2019-01-22 08:16 | ROOPDOC ---
[facility] Report Of Operation Report of Operation DATE OF PROCEDURE: 01/22/19 PREPROCEDURE DIAGNOSES: Diverticulitis. 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 PROCEDURE: Cystoscopy, insertion left ureteral catheter. SURGEON: Tien Mesa MD ANESTHESIA: Gen. endotracheal. ESTIMATED BLOOD LOSS: Approximately less than 5 mL. COMPLICATIONS: None. REMARKS: Drains 5 Turkish left ureteral catheter, 16 Turkish Wilkerson catheter. DESCRIPTION OF PROCEDURE: Patient was brought to the operating room and following the ministration of general endotracheal anesthesia was placed in the dorsal lithotomy position and prepped and draped in usual sterile fashion. The urethral meatus was tight and dilated to 24 Turkish using Tilden sounds. A 22 Turkish cystoscope was inserted under direct vision. The urethra was unremarkable. The prostate was 3 cm in length and mildly obstructive. Examination the bladder revealed evidence of cystitis involving the left lateral wall suggestive of a colovesical fistula. The ureteral orifices were normal bilaterally and clear eflux was observed bilaterally. A 0.038 guidewire was inserted into the left ureteral orifice. A 5 Turkish open-ended catheter was then placed over the wire and advanced to the renal pelvis. The wire was removed leaving the catheter in place. The cystoscope was removed leaving the catheter in place. A 16 Turkish Wilkerson catheter was inserted and placed to gravity drainage. The ureteral catheter was secured to the Wilkerson catheter. Patient tolerated procedure well and proceeded with general surgical procedure which will be dictated in a separate note. Tien Mesa MD Jan 22, 2019 08:16
[2019-01-22] MEDS ORDERED: KETOROLAC 60 MG/2 ML VIAL (J1885) As Ordered ONE (08:21)
[2019-01-22] MEDS ORDERED: BUPIVACAINE HCL 0.25% 10 ML VIAL As Ordered ONE ×2 (09:24→11:34)
[2019-01-22] MEDS ORDERED: BUPIVACAINE LIPOSOME/PF 1.3% 20ML VIAL (13.3MG/ML)(EXPAREL)(C9290 PER1MG) As Ordered ONE (09:25)
[2019-01-22] MEDS ORDERED: fentaNYL 100 MCG/2 ML INJECTION (J3010) As Ordered ONE ×2 (09:51→12:02)
[2019-01-22] MEDS ORDERED: METHYLENE BLUE 0.5% (5MG/ML) 10 ML AMP (PROVAYBLUE)(Q9968 PER 1MG) As Ordered ONE (09:57)
[2019-01-22] MEDS ORDERED: ACETAMINOPHEN TAB 650MG DOSE (2X325MG) PO PRN (12:30)
[2019-01-22] MEDS ORDERED: PERCOCET 5MG/325MG TAB PO PRN ×2 (12:30→12:45)
[2019-01-22] MEDS ORDERED: ONDANSETRON 4MG/2ML VIAL (J2405) IV PRN ×2 (12:30→12:45)
[2019-01-22] MEDS ORDERED: HYDROMORPHONE HCL 0.5 MG/ 0.5 ML SYRINGE (J1170 PER 1) As Ordered ONE (12:38)
[2019-01-22] MEDS: HYDROMORPHONE HCL 0.5 MG/ 0.5 ML SYRINGE (J1170 PER 1) IV PRN ×2 (12:45→12:50)
[2019-01-22] MEDS ORDERED: LR 1,000 ML IV SCH (12:45)
[2019-01-22] MEDS ORDERED: fentaNYL 100 MCG/2 ML INJECTION (J3010) IV PRN (12:45)
--- NOTE | 2019-01-22 13:31 | ROOPDOC ---
[facility] Report Of Operation Report of Operation DATE OF PROCEDURE: 01/22/19 PREPROCEDURE DIAGNOSES: Diverticulitis with abscess and colovesical fistula. POSTPROCEDURE DIAGNOSES: same. PROCEDURE: Robotic assisted Laparoscopic Sigmoid Colectomy with proctocolic anastomosis (EEA 29), takedown of attachments to bladder and anterior abdominal wall. Flexible sigmoidoscopy SURGEON: Shyam Stafford MD CONSULTANT INTERNSHIP: Geneva Bernabe NP, Km Dong, Leandra Srinivasa assisted with port placements, management of the robot, instruments on the field while I was at the surgeon's console as well as retraction of colon , bowels. Dr. Dong came in to assist with the final colon resection and anastomosis and he performed the flexible sigmoidoscopy portion for the anastomotic testing. ANESTHESIA: General Anesthesia. ESTIMATED BLOOD LOSS: Approximately 50 mL. COMPLICATIONS: none. REMARKS: 48 M with recurrent left lower quadrant pain from diverticulitis. 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 I scoped him last year and he had an area of mucosal inflammation from rectosigmoid throughout the whole of the left colon with pathology showing indeterminate colitis and he was started on mesalamine for suspicion of Ulcerative colitis. PROCEDURE NOTE: Distended, thickened mid sigmoid colon adhered densely to the left anterior lower abdominal wall and dome of the bladder. A small pocket of well formed abscess evacuated on dissecting the colon from the abdominal wall and urinary bladder. The sigmoid colon was thickened through the distal portion but the upper rectum is normal in appearance. The involved portion of the sigmoid colon extends to near the junction of the sigmoid colon and descending colon. After performing the sigmoidectomy and anastomoses. I had my nurse instill some methylene blue to the bladder and I did not see any leakage of the blue dye at the area of where the colon was dissected from the abdominal wall and bladder. DESCRIPTION OF PROCEDURE: Patient received Levaquin 500 mg IV and metronidazole 500 mg IV preoperatively for wound prophylaxis. He received 5000 units of heparin subcutaneously for DVT prophylaxis and Entereg 12 mg by mouth. Patient is on lithotomy position, under general anesthesia and had placement of a left ureteral stent to aid in the intraoperative identification of the ureter laparoscopically. He is abdomen and perineum is been adequately prepped and draped. .We paused for a surgical timeout using both pre-incision safety checklist to verify correct patient, procedure site and additional clinical information prior to beginning the procedure. I initially tried entered the abdomen with the right upper quadrant incision via a Veress needle but I had some difficulty getting intra-peritoneally. So I made a separate incision over the left upper quadrant area close to the costal cartilage at about the midclavicular line and was successful in placing the Veress needle intra-abdominally confirmed with saline drop technique. CO2 insufflation was then started to pressure 15 mmHg.I had him placed on a Trendelenburg position about 25 and a 10 tilt towards the right side, using the same incision a 5 mm port was placed under direct vision of laparoscope. Insertion site as well as the site underneath the right upper quadrant was inspected for injury and none was found. The robotic trochars were placed in a diagonal fashion going towards the anterior superior iliac spine. The 12 mm taper port was placed over the right lower quadrant area with the camera trocar close to the umbilicus. The 5 mm port was exchanged for an 8 mm port. An extra 5 mm port was placed over the right upper quadrant area where previous incision was 4 my assistant construction superintendent port On initial laparoscopy to view the area of pathology, the colon was noted to be adhered to the anterior abdominal wall towards the left side. This appears quite distended, chronically thickened. The pelvis itself wasn't visible due to the size of the sigmoid colon. I followed this towards the left colon and this tapers to a normal-appearing colon. The small bowel is freely movable without any adhesion to the sigmoid colon. He has a healthy amount of omentum. There was retracted back to the left upper quadrant area. The da Michaela robot tower is then maneuvered into place with the patient's right side and the trochars were docked onto the robotic arms. The robotic instruments were placed into view. An 8 mm 30 laparoscope, tips of fenestrated grasper, force bipolar forceps and initially laparoscopic scissors connected to a mono polar cautery and then later on vessel sealer was used and 60 mm sure form stapler with a green load was used. I then scrubbed to control of the camera and instruments at the surgeon's console while my assistant construction superintendent remains in the field managing the robot, instruments, arms and retraction. I started by mostly bluntly dissecting the colon off its attachment to the lower left lateral anterior abdominal wall and I presumed to be partly the dome of the bladder. This was densely adhered to the area with associated acute and chronic inflammation consistent with the fistula and abscess that was seen on the CT. With adequate retraction and but mostly blunt dissection and occasional cautery dissection the colon was slowly pulled away from its inflammatory attachments an d we got into the plane of the abscess in between the bladder and sigmoid colon with drainage of purulent material. I then started working medially and laterally to pre-both ends of the adhesion until the whole colon was brought down away from the abdominal wall and bladder. The lateral attachments then of the sigmoid colon and the peritoneal reflection was dissected free of the left anterolateral abdominal wall along the line of Toldt. The ureter was identified with the ureteral stent in place and dissection was performed away from the course of the ureter. The lateral attachments of the mesentery of the sigmoid colon was dissected free of the pelvis mostly with blunt dissection to free up the sigmoid colon. At this point the sigmoid colon as freely movable and the area of inflammation seems to extend to the lower sigmoid this before it turns into the rectum. The upper rectum itself identified with the confluence of the tinea seems to be healthy and not involved. I chose this as my distal site of resection. Looking more proximally most of the sigmoid colon since to be involved, hard, distended and it gradually tapers to a normal-appearing pliable and soft: Prior to taking a turn towards the ascending colon with not much leftover diverticula that I note off at the sigmoid. The previous dissection along the white line of Toldt was extended to further manipulate the sigmoid colon for the resection. The sigmoid colon was lifted up anteriorly towards the left side close the mesentery and course of the inferior mesenteric artery. The medial reflections the peritoneum of the mesentery was opened up with the Bovie cautery tracing the midline towards the previous he chose an area of distal resection. The course of the inferior mesenteric artery and its distal branches towards the sigmoid was dissected bluntly. The retroperitoneal attachments were bluntly taken down and the previously identified ureter was visualized. At this point I turned my attention towards the upper rectum. The mesentery was opened up with the vessel sealer and the mesentery dissected underneath the rectum to create an adequate window for the stapler. The rectum was then divided with a 60 mm stapler with a green load on a single fire. The rest of the mesenteric attachments were divided with a vessel sealer going proximally towards the previously identified inferior mesenteric artery which was taken with a vessel sealer after it gives off the sigmoid artery branches. The vein was also divided at about the same level. The mesentery of the colon was tented and line traced towards the previously chosen area for proximal resection at about the junction of the descending colon and sigmoid colon and the mesentery was divided making sure this was above and away from the ureter. At this point I used for fly with ICG to identify an adequate area of the colon that is perfused well and I marked this with Bovie cautery. The end of the colon was grasped with a laparoscopic grasper for delivery later on. At this point I scrubbed back can. Dr. Dong was made available to help me with this part of the procedure. I chose the area around the umbilicus in roughly about a 4-5 cm skin incision was created vertically and taking deep through to his thick subcutaneous tissue. The abdominal wall fascia was opened up throughou t the length of the skin incision and an Vijay wound retractor was placed. The sigmoid colon was delivered into the wound and extracted out. The previously marked area for resection was trimmed and the colon was divided controlling the colon stump. EEA sizers were used and a 29 mm EEA stapler was chosen. The anvil was placed into the lumen and the colon was closed with a pursestring suture of 2-0 Prolene. The solitario-up initial fat tissue and epiploic appendages were trimmed along the line of work the staple would fall into. The colon was then delivered back into the abdomen. We changed gloves for wound closure. The fascial incision was closed with 1 Vicryl in a mattress fashion. We resumed laparoscopy and we docked the da Michaela robot. I went back surgeon's console while Dr. Dong came down in between the patient's legs to prepare for the anastomosis. Patient was placed back on its previous number position. The left colon was further freed up along the white line of Toldt up towards the splenic flexure and the mesentery bluntly dissected free off the abdominal wall and the Gen.'s fascia. The colon was mobile enough to reach the upper part of the pelvis and stayed there without any undue retraction and was found to be adequate enough for the anastomosis. Dr. Dong placed initially the EEA sizers to determine the adequacy of the rectal stump and its mobility. The EEA stapler was placed transrectally and 90 manipulated the rectum to placed the spike of the stapler coming anteriorly of the rectal stump wall. The anvil and stapler were assembled when I made sure that the course of the descending colon to straight. The stapler was engaged and removed. The anastomotic donuts were examined and noted to be adequate. The colon was clamped proximally and the anastomosis was tested with a flexible sigmoidoscope. The anastomosis was visualized with minimal oozing along the inferior portion of the staple line which stopped on its own with both sides of the staple line appearing visually healthy. This was insufflated and tested under water and no leakage was noted. I used ICG to again visualize both ends of the anastomosis and noted adequate perfusion. Flexible sigmoidoscope was removed and the colon decompressed. I scrubbed back in once more. A 19 Arden drain was inserted and placed in the pelvis coming off the right lower quadrant port. Prior to deflating the abdomen asked probably mixed with Marcaine was used is transabdominal preperitoneal block on both right and left sides via laparoscopic guidance. The abdomen was then deflated. The 8 mm port site incisions were closed with carloz. The extraction site was irrigated and checked for adequate hemostasis and then also closed with carloz in the skin level. Postoperative dry gauze dressings then placed and the drain was secured into the skin. Patient tolerated procedure well. He was promptly awakened, extubated and brought to recovery room in stable condition. SHYAM STAFFORD MD Jan 22, 2019 13:31
[2019-01-22] MEDS: LR 1,000 ML IV SCH ×2 (14:11→21:54)
[2019-01-22] MEDS: HEPARIN SOD (PORCINE) 5000 UNITS/ML VIAL SC SCH ×2 (14:11→21:13)
[2019-01-22] MEDS: KETOROLAC 30 MG/ML VIAL (J1885) IV PRN (16:58)
[2019-01-22] MEDS: PERCOCET 5MG/325MG TAB PO PRN ×2 (16:59→21:15)
[2019-01-22] MEDS: ALVIMOPAN 12 MG CAPSULE (ENTEREG) PO SCH (21:12)
[2019-01-23] VITALS (7 sets, daily range): BP systolic 109–134; BP diastolic 61–82; O2SAT 91–93
[2019-01-23] MEDS: KETOROLAC 30 MG/ML VIAL (J1885) IV PRN ×3 (03:36→21:46)
[2019-01-23] MEDS: LR 1,000 ML IV SCH ×3 (04:27→19:53)
[2019-01-23] MEDS: HEPARIN SOD (PORCINE) 5000 UNITS/ML VIAL SC SCH ×3 (05:40→20:30)
[2019-01-23] MEDS: PERCOCET 5MG/325MG TAB PO PRN ×4 (05:41→21:48)
[2019-01-23 07:06] LABS: BASO % 0.1 % (0.0-1.0); EOS % 0.2 % (0.0-3.0); HEMATOCRIT 33.6 % (42.0-52.0); HEMOGLOBIN 11.3 g/dl (13.5-17.5); LYMPH # 1.2 10^3/uL (1.5-5.0); MEAN CORPUSCULAR HEMOGLOBIN 30.3 pg (27.0-33.0); MEAN CORPUSCULAR HGB CONC 33.6 g/dl (32.0-36.5); MEAN CORPUSCULAR VOLUME 90.1 fl (80.0-96.0); MONO # 0.8 10^3/uL (0.0-0.8); MONO % 9.3 % (0.0-5.0); NEUTROPHILS # 6.5 10^3/uL (1.5-8.5); NEUTROPHILS % 76.2 % (36.0-66.0); PLATELET COUNT, AUTOMATED 219 10^3/uL (150-450); RED BLOOD COUNT 3.73 10^6/uL (4.30-6.10); WHITE BLOOD COUNT 8.6 10^3/uL (4.0-10.0)
[2019-01-23 07:15] LABS: BLOOD UREA NITROGEN 14 MG/DL (7-18); CALCIUM LEVEL 8.5 MG/DL (8.5-10.1); CARBON DIOXIDE LEVEL 25 MEQ/L (21-32); CHLORIDE LEVEL 103 MEQ/L (98-107); CREATININE FOR GFR 1.06 MG/DL (0.70-1.30); GLOMERULAR FILTRATION RATE > 60.0 (>60); GLUCOSE, FASTING 117 MG/DL (70-100); POTASSIUM SERUM 4.1 MEQ/L (3.5-5.1); SODIUM LEVEL 136 MEQ/L (136-145)
--- NOTE | 2019-01-23 07:45 | IPNPDOC ---
Date Seen The patient was seen on 01/23/19. Progress Note SUBJECTIVE: Patient without complaints. Denies colic. OBJECTIVE PHYSICAL EXAMINATION: VITAL SIGNS: Please see below. Waggoner draining well. Urine clear LABORATORY DATA, IMAGING STUDIES, MICROBIOLOGY: Please see below. ASSESSMENT AND PLAN: Patient is urologically stable. 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 VS, I&O, 24H, Fishbone Vital Signs/I&O Vital Signs Date Time Temp Pulse Resp B/P (MAP) Pulse Ox O2 Delivery O2 Flow Rate FiO2 01/23/19 06:11 12 01/23/19 06:00 97.5 60 134/82 (99) 94 2.0 01/23/19 05:49 Room Air I&O- Last 24 Hours up to 6 AM 01/23/19 06:00 Intake Total 2770 ml Output Total 1325 ml Balance 1445 ml Laboratory Data 24H LABS Laboratory Tests 2 01/23/19 06:29: Immature Granulocyte % (Auto) 0.2, White Blood Count 8.6, Red Blood Count 3.73L, Hemoglobin 11.3L, Hematocrit 33.6L, Mean Corpuscular Volume 90.1, Mean Corpuscular Hemoglobin 30.3, Mean Corpuscular Hemoglobin Concent 33.6, Red Cell Distribution Width 13.5, Platelet Count 219, Neutrophils (%) (Auto) 76.2H, Ly mphocytes (%) (Auto) 14.0L, Monocytes (%) (Auto) 9.3H, Eosinophils (%) (Auto) 0.2, Basophils (%) (Auto) 0.1, Neutrophils # (Auto) 6.5, Lymphocytes # (Auto) 1.2L, Monocytes # (Auto) 0.8, Eosinophils # (Auto) 0.0, Basophils # (Auto) 0.0, Nucleated Red Blood Cells % (auto) 0.0, Anion Gap 8, Glomerular Filtration Rate > 60.0, Blood Urea Nitrogen 14, Creatinine 1.06, Sodium Level 136, Potassium Level 4.1, Chloride Level 103, Carbon Dioxide Level 25, Calcium Level 8.5 CBC/BMP Laboratory Tests 01/23/19 06:29 Red Blood Count 3.73 L, Mean Corpuscular Volume 90.1, Mean Corpuscular Hemoglobin 30.3, Mean Corpuscular Hemoglobin Concent 33.6, Red Cell Distribution Width 13.5, Neutrophils (%) (Auto) 76.2 H, Lymphocytes (%) (Auto) 14.0 L, Monocytes (%) (Auto) 9.3 H, Eosinophils (%) (Auto) 0.2, Basophils (%) (Auto) 0.1, Neutrophils # (Auto) 6.5, Lymphocytes # (Auto) 1.2 L, Monocytes # (Auto) 0.8, Eosinophils # (Auto) 0.0, Basophils # (Auto) 0.0, Calcium Level 8.5 Tien Mesa MD Jan 23, 2019 07:45
[2019-01-23] MEDS: ATORVASTATIN 10 MG TAB PO SCH (08:23)
[2019-01-23] MEDS: METAMUCIL (PSYLLIUM) PACKET PO SCH (08:23)
[2019-01-23] MEDS: ALVIMOPAN 12 MG CAPSULE (ENTEREG) PO SCH ×2 (08:23→20:30)
--- NOTE | 2019-01-23 10:48 | IPNPDOC ---
Subjective General Date/Time Seen The patient was seen on 01/23/19 at 08:58. Subject Chief Complaint/History The patient is a 48-year-old male admitted with a reason for visit of Diverticulitis, Colovesical Fistula. Overall doing well. Reports [id number] discomfort in his abdomen, feels like he would need to for her to or have a bowel movement. He has not been out of bed or have ambulated yet. He denies any nausea. Current Medications Current Medications Current Medications Medications (Trade) Dose Ordered Sig/Bandar Route PRN Reason Start Time Stop Time Status Last Admin Dose Admin Acetaminophen (Tylenol Tab) 650 mg Q4HP PRN PO MILD PAIN or TEMP > 101 01/22/19 12:30 Alvimopan (Entereg) 12 mg BID PO 01/22/19 21:00 01/29/19 20:59 01/23/19 08:23 Atorvastatin Calcium (Lipitor) 10 mg DAILY PO 01/23/19 09:00 01/23/19 08:23 Fentanyl Citrate (Sublimaze) 25 mcg Q5MP PRN IV MODERATE PAIN (PS 4-7) 01/22/19 12:45 01/22/19 13:45 DC Heparin Sodium (Porcine) (Heparin) 5,000 units Q8H SC 01/22/19 14:00 01/23/19 05:40 Hydromorphone HCl (Dilaudid) 0.2 mg Q5MP PRN IV MODERATE/SEVERE PAIN (PS 5-10) 01/22/19 12:45 01/22/19 13:45 DC 01/22/19 12:50 Ketorolac Tromethamine (ToRADol) 30 mg Q6HP PRN IV MILD/MODERATE PAIN (PS 1-7) 01/22/19 15:00 01/27/19 14:59 01/23/19 03:36 Lactated Ringer's 1,000 ml @ 100 mls/hr Q10H IV 01/22/19 12:45 01/22/19 13:45 DC Lactated Ringer's 1,000 ml @ 125 mls/hr Q8H IV 01/22/19 12:28 01/23/19 04:27 Ondansetron HCl (ZOFRAN INJection) 4 mg Q4HP PRN IV NAUSEA OR VOMITING 01/22/19 12:45 01/22/19 13:45 DC Ondansetron HCl (ZOFRAN INJection) 4 mg Q6HP PRN IV NAUSEA OR VOMITING 01/22/19 12:30 Oxycodone/ Acetaminophen (Percocet 5mg/ 325mg Tablet) 1 tab ASDIRECTED PRN PO MILD/MODERATE PAIN (PS 1-7) 01/22/19 12:45 01/22/19 13:45 DC 01/22/19 13:10 Oxycodone/ Acetaminophen (Percocet 5mg/ 325mg Tablet) 1 tab Q4HP PRN PO MODERATE PAIN (PS 5-7) 01/22/19 12:30 01/23/19 05:41 Oxycodone/ Acetaminophen (Percocet 5mg/ 325mg Tablet) 2 tab Q6HP PRN PO SEVERE PAIN (PS 8-10) 01/22/19 12:30 Psyllium Hydrophilic Mucilloid (Metamucil) 1 pkt DAILY PO 01/23/19 09:00 01/23/19 08:23 Allergies Coded Allergies: Penicillins (Verified Allergy, Intermediate, rash/hives, 01/22/19) Objective Physical Examination Examination GENERAL APPEARANCE: Overall relatively comfortable in appearance. SKIN: Warm and moist. HEENT: Normocephalic, atraumatic. [place] palpebral conjunctiva, anicteric sclerae. Lips and mucosa appear moist. NECK: Supple, no thyromegaly. No obvious jugular venous distention. LUNGS: Clear to auscultation bilaterally. No wheezing appreciated. HEART: No chest wall abnormalities. Regular rate and rhythm with no murmurs daniel reciated. ABDOMEN: Abdomen is round, soft, moderately distended. Still hypoactive bowel sounds. Laparoscopic port site incision as well as the extraction site around the umbilicus dressings are clean, dry and intact. Right lower quadrant Flash- Vanegas drain with minimal amount of serosanguineous fluid. EXTREMITIES: Extremities have no deformities. No edema identified. Vital Signs Vital Signs Date Time Temp Pulse Resp B/P (MAP) Pulse Ox O2 Delivery O2 Flow Rate FiO2 01/23/19 06:11 12 01/23/19 06:00 97.5 60 134/82 (99) 94 2.0 01/23/19 05:49 Room Air I&Os I&O- Last 24 Hours up to 6 AM 01/23/19 06:00 Intake Total 2770 ml Output Total 1325 ml Balance 1445 ml Laboratory Data Labs 24H Laboratory Tests 2 01/23/19 06:29: Immature Granulocyte % (Auto) 0.2, White Blood Count 8.6, Red Blood Count 3.73L, Hemoglobin 11.3L, Hematocrit 33.6L, Mean Corpuscular Volume 90.1, Mean Corpuscular Hemoglobin 30.3, Mean Corpuscular Hemoglobin Concent 33.6, Red Cell Distribution Width 13.5, Platelet Count 219, Neutrophils (%) (Auto) 76.2H, Lymphocytes (%) (Auto) 14.0L, Monocytes (%) (Auto) 9.3H, Eosinophils (%) (Auto) 0.2, Basophils (%) (Auto) 0.1, Neutrophils # (Auto) 6.5, Lymphocytes # (Auto) 1.2L, Monocytes # (Auto) 0.8, Eosinophils # (Auto) 0.0, Basophils # (Auto) 0.0, Nucleated Red Blood Cells % (auto) 0.0, Anion Gap 8, Glomerular Filtration Rate > 60.0, Blood Urea Nitrogen 14, Creatinine 1.06, Sodium Level 136, Potassium Level 4.1, Chloride Level 103, Carbon Dioxide Level 25, Calcium Level 8.5 CBC/BMP Laboratory Tests 01/23/19 06:29 Red Blood Count 3.73 L, Mean Corpuscular Volume 90.1, Mean Corpuscular Hemoglobin 30.3, Mean Corpuscular Hemoglobin Concent 33.6, Red Cell Distribution Width 13.5, Neutrophils (%) (Auto) 76.2 H, Lymphocytes (%) (Auto) 14.0 L, Monocytes (%) (Auto) 9.3 H, Eosinophils (%) (Auto) 0.2, Basophils (%) (Auto) 0.1, Neutrophils # (Auto) 6.5, Lymphocytes # (Auto) 1.2 L, Monocytes # (Auto) 0.8, Eosinophils # (Auto) 0.0, Basophils # (Auto) 0.0, Calcium Level 8.5 Impression POD1 RA lap sigmoid colectomy for colovesical fistula He looks mildly distended but denies a nausea or vomiting, otherwise hemodynamically stable and make making adequate urine. Intra-abdominal drain only putting out minimal amount of serosanguineous fluid. I told him to ambulate to hallways today. He is on Metamucil as well as Entereg. I also advised to take deep breathing exercises using the incentive spirometer. I will keep him on clear liquids until there is clear sign that he has adequate forward bowel peristalsis. I'll keep the Wilkerson catheter today due to the manipulation in the bladder, colovesical fistula but he is doing well, most likely this can be removed by tomorrow. Heparin for DVT prophylaxis. He had questions about using the sulfasalazine for the ulcerative colitis suspicion. I told him he will have more information for him once pathology is available on whether he needs to continue this or not Plan / VTE VTE Prophylaxis Ordered?: Yes Plan / Urinary Catheter Reason for insertion/continuin: Perioperative JOIE MARTINES MD Jan 23, 2019 09:24
[2019-01-24] MEDS: PERCOCET 5MG/325MG TAB PO PRN ×4 (03:34→20:02)
[2019-01-24] MEDS: LR 1,000 ML IV SCH ×2 (04:43→11:27)
[2019-01-24] MEDS: KETOROLAC 30 MG/ML VIAL (J1885) IV PRN ×3 (04:48→17:36)
[2019-01-24 06:00] VITALS: BP 109/69
[2019-01-24] MEDS: HEPARIN SOD (PORCINE) 5000 UNITS/ML VIAL SC SCH ×3 (06:07→20:02)
[2019-01-24 06:32] LABS: BASO % 0.7 % (0.0-1.0); EOS # 0.1 10^3/uL (0.0-0.5); EOS % 1.1 % (0.0-3.0); HEMATOCRIT 32.6 % (42.0-52.0); HEMOGLOBIN 10.6 g/dl (13.5-17.5); LYMPH # 1.2 10^3/uL (1.5-5.0); LYMPH % 20.5 % (24.0-44.0); MEAN CORPUSCULAR HEMOGLOBIN 29.1 pg (27.0-33.0); MEAN CORPUSCULAR HGB CONC 32.5 g/dl (32.0-36.5); MEAN CORPUSCULAR VOLUME 89.6 fl (80.0-96.0); MONO # 0.4 10^3/uL (0.0-0.8); MONO % 7.7 % (0.0-5.0); NEUTROPHILS # 3.9 10^3/uL (1.5-8.5); NEUTROPHILS % 69.8 % (36.0-66.0); PLATELET COUNT, AUTOMATED 185 10^3/uL (150-450); RED BLOOD COUNT 3.64 10^6/uL (4.30-6.10); WHITE BLOOD COUNT 5.6 10^3/uL (4.0-10.0)
[2019-01-24 06:45] LABS: BLOOD UREA NITROGEN 10 MG/DL (7-18); CALCIUM LEVEL 8.5 MG/DL (8.5-10.1); CARBON DIOXIDE LEVEL 27 MEQ/L (21-32); CHLORIDE LEVEL 106 MEQ/L (98-107); CREATININE FOR GFR 0.99 MG/DL (0.70-1.30); GLOMERULAR FILTRATION RATE > 60.0 (>60); GLUCOSE, FASTING 91 MG/DL (70-100); SODIUM LEVEL 140 MEQ/L (136-145)
[2019-01-24 09:00] VITALS: O2SAT 91
[2019-01-24] MEDS: METAMUCIL (PSYLLIUM) PACKET PO SCH (09:00)
[2019-01-24] MEDS: ATORVASTATIN 10 MG TAB PO SCH (09:03)
[2019-01-24] MEDS: ALVIMOPAN 12 MG CAPSULE (ENTEREG) PO SCH ×2 (09:03→20:01)
[2019-01-24 14:00] VITALS: BP 124/83
[2019-01-24 22:00] VITALS: BP 110/70
[2019-01-25] MEDS: KETOROLAC 30 MG/ML VIAL (J1885) IV PRN ×3 (00:41→17:45)
[2019-01-25] MEDS: LEVOTHYROXINE 125MCG TABLET (0.125MG) PO SCH (05:54)
[2019-01-25] MEDS: HEPARIN SOD (PORCINE) 5000 UNITS/ML VIAL SC SCH ×3 (05:55→21:26)
[2019-01-25] MEDS: PERCOCET 5MG/325MG TAB PO PRN ×3 (05:56→19:55)
[2019-01-25 06:00] VITALS: BP 125/77
[2019-01-25 06:30] LABS: BASO % 0.6 % (0.0-1.0); EOS # 0.1 10^3/uL (0.0-0.5); EOS % 2.7 % (0.0-3.0); HEMATOCRIT 33.9 % (42.0-52.0); HEMOGLOBIN 11.1 g/dl (13.5-17.5); LYMPH # 1.6 10^3/uL (1.5-5.0); MEAN CORPUSCULAR HEMOGLOBIN 29.1 pg (27.0-33.0); MEAN CORPUSCULAR HGB CONC 32.7 g/dl (32.0-36.5); MONO # 0.4 10^3/uL (0.0-0.8); MONO % 8.7 % (0.0-5.0); NEUTROPHILS # 2.7 10^3/uL (1.5-8.5); NEUTROPHILS % 55.8 % (36.0-66.0); PLATELET COUNT, AUTOMATED 178 10^3/uL (150-450); RED BLOOD COUNT 3.81 10^6/uL (4.30-6.10); WHITE BLOOD COUNT 4.8 10^3/uL (4.0-10.0)
[2019-01-25 06:55] LABS: BLOOD UREA NITROGEN 10 MG/DL (7-18); CALCIUM LEVEL 8.5 MG/DL (8.5-10.1); CARBON DIOXIDE LEVEL 27 MEQ/L (21-32); CHLORIDE LEVEL 106 MEQ/L (98-107); CREATININE FOR GFR 0.96 MG/DL (0.70-1.30); GLOMERULAR FILTRATION RATE > 60.0 (>60); GLUCOSE, FASTING 83 MG/DL (70-100); POTASSIUM SERUM 3.7 MEQ/L (3.5-5.1); SODIUM LEVEL 140 MEQ/L (136-145)
[2019-01-25 09:00] VITALS: O2SAT 96
[2019-01-25] MEDS: ALVIMOPAN 12 MG CAPSULE (ENTEREG) PO SCH ×2 (09:27→21:26)
[2019-01-25] MEDS: ATORVASTATIN 10 MG TAB PO SCH (09:27)
[2019-01-25] MEDS: METAMUCIL (PSYLLIUM) PACKET PO SCH (09:27)
--- NOTE | 2019-01-25 10:33 | IPNPDOC ---
Subjective General Date/Time Seen The patient was seen on 01/25/19 at 10:31. Subject Chief Complaint/History The patient is a 48-year-old male admitted with a reason for visit of Diverticulitis, Colovesical Fistula. Patient reports he is doing well. Minimal discomfort in the abdomen. He is tolerating food and has had a couple of bowel movements. He is ambulating the hallways. Current Medications Current Medications Current Medications Medications (Trade) Dose Ordered Sig/Bandar Route PRN Reason Start Time Stop Time Status Last Admin Dose Admin Acetaminophen (Tylenol Tab) 650 mg Q4HP PRN PO MILD PAIN or TEMP > 101 01/22/19 12:30 Alvimopan (Entereg) 12 mg BID PO 01/22/19 21:00 01/29/19 20:59 01/25/19 09:27 Atorvastatin Calcium (Lipitor) 10 mg DAILY PO 01/23/19 09:00 01/25/19 09:27 Fentanyl Citrate (Sublimaze) 25 mcg Q5MP PRN IV MODERATE PAIN (PS 4-7) 01/22/19 12:45 01/22/19 13:45 DC Heparin Sodium (Porcine) (Heparin) 5,000 units Q8H SC 01/22/19 14:00 01/25/19 05:55 Hydromorphone HCl (Dilaudid) 0.2 mg Q5MP PRN IV MODERATE/SEVERE PAIN (PS 5-10) 01/22/19 12:45 01/22/19 13:45 DC 01/22/19 12:50 Ketorolac Tromethamine (ToRADol) 30 mg Q6HP PRN IV MILD/MODERATE PAIN (PS 1-7) 01/22/19 15:00 01/27/19 14:59 01/25/19 09:54 Lactated Ringer's 1,000 ml @ 100 mls/hr Q10H IV 01/22/19 12:45 01/22/19 13:45 DC Lactated Ringer's 1,000 ml @ 125 mls/hr Q8H IV 01/22/19 12:28 01/24/19 18:20 DC 01/24/19 11:27 Levothyroxine Sodium (Synthroid) 125 mcg DAILY@06 PO 01/25/19 06:00 01/25/19 05:54 Ondansetron HCl (ZOFRAN INJection) 4 mg Q4HP PRN IV NAUSEA OR VOMITING 01/22/19 12:45 01/22/19 13:45 DC Ondansetron HCl (ZOFRAN INJection) 4 mg Q6HP PRN IV NAUSEA OR VOMITING 01/22/19 12:30 Oxycodone/ Acetaminophen (Percocet 5mg/ 325mg Tablet) 1 tab ASDIRECTED PRN PO MILD/MODERATE PAIN (PS 1-7) 01/22/19 12:45 01/22/19 13:45 DC 01/22/19 13:10 Oxycodone/ Acetaminophen (Percocet 5mg/ 325mg Tablet) 1 tab Q4HP PRN PO MODERATE PAIN (PS 5-7) 01/22/19 12:30 01/25/19 05:56 Oxycodone/ Acetaminophen (Percocet 5mg/ 325mg Tablet) 2 tab Q6HP PRN PO SEVERE PAIN (PS 8-10) 01/22/19 12:30 Psyllium Hydrophilic Mucilloid (Metamucil) 1 pkt DAILY PO 01/23/19 09:00 01/25/19 09:27 Allergies Coded Allergies: Penicillins (Verified Allergy, Intermediate, rash/hives, 01/22/19) Objective Physical Examination Examination GENERAL APPEARANCE: Comfortable. SKIN: Warm and moist. HEENT: Normocephalic, atraumatic. [place] palpebral conjunctiva, anicteric sclerae. Lips and mucosa appear moist. NECK: Supple, no thyromegaly. No obvious jugular venous distention. LUNGS: Clear to auscultation bilaterally. No wheezing appreciated. HEART: No chest wall abnormalities. Regular rate and rhythm with no murmurs appreciated. ABDOMEN: Abdomen is minimally distended, soft, and mildly tympanitic in the upper abdomen. Laparoscopic port site incisions are clean, dry and intact. GRETEL drain is mostly serous minimal tenderness on the left side. EXTREMITIES: Extremities have no deformities. No edema identified. Vital Signs Vital Signs Date Time Temp Pulse Resp B/P (MAP) Pulse Ox O2 Delivery O2 Flow Rate FiO2 01/25/19 06:26 16 95 01/25/19 06:00 97.5 55 125/77 (93) 01/24/19 09:00 Room Air 01/23/19 21:00 1.0 I&Os I&O- Last 24 Hours up to 6 AM 01/25/19 06:00 Intake Total 2320 ml Output Total 2495 ml Balance -175 ml Laboratory Data Labs 24H Laboratory Tests 2 01/25/19 05:57: Immature Granulocyte % (Auto) 0.2, White Blood Count 4.8, Red Blood Count 3.81L, Hemoglobin 11.1L, Hematocrit 33.9L, Mean Corpuscular Volume 89.0, Mean Corpuscular Hemoglobin 29.1, Mean Corpuscular Hemoglobin Concent 32.7, Red Cell Distribution Width 13.5, Platelet Count 178, Neutrophils (%) (Auto) 55.8, Lymphocytes (%) (Auto) 32.0, Monocytes (%) (Auto) 8.7H, Eosinophils (%) (Auto) 2.7, Basophils (%) (Auto) 0.6, Neutrophils # (Auto) 2.7, Lymphocytes # (Auto) 1.6, Monocytes # (Auto) 0.4, Eosinophils # (Auto) 0.1, Basophils # (Auto) 0.0, Nucleated Red Blood Cells % (auto) 0.0, Anion Gap 7L, Glomerular Filtration Rate > 60.0, Blood Urea Nitrogen 10, Creatinine 0.96, Sodium Level 140, Potassium Level 3.7, Chloride Level 106, Carbon Dioxide Level 27, Calcium Level 8.5 CBC/BMP Laboratory Tests 01/25/19 05:57 Red Blood Count 3.81 L, Mean Corpuscular Volume 89.0, Mean Corpuscular Hemoglo bin 29.1, Mean Corpuscular Hemoglobin Concent 32.7, Red Cell Distribution Width 13.5, Neutrophils (%) (Auto) 55.8, Lymphocytes (%) (Auto) 32.0, Monocytes (%) (Auto) 8.7 H, Eosinophils (%) (Auto) 2.7, Basophils (%) (Auto) 0.6, Neutrophils # (Auto) 2.7, Lymphocytes # (Auto) 1.6, Monocytes # (Auto) 0.4, Eosinophils # (Auto) 0.1, Basophils # (Auto) 0.0, Calcium Level 8.5 Impression POD3 RA Lap sigmoid colectomy, takedown of colovesical fistula d/c waggoner today low residue diet anticipate could probably go home in a day or two depening on pain, food tolerance, bowel function Plan / VTE VTE Prophylaxis Ordered?: Yes Plan / Urinary Catheter Urinary Catheter: D/C Waggoner Reason for insertion/continuin: Perioperative JOIE MARTINES MD Jan 25, 2019 10:33
[2019-01-25 14:00] VITALS: BP 127/70
[2019-01-25 22:00] VITALS: BP 129/78; O2SAT 92
[2019-01-26] MEDS: PERCOCET 5MG/325MG TAB PO PRN ×2 (05:16→09:22)
[2019-01-26] MEDS: HEPARIN SOD (PORCINE) 5000 UNITS/ML VIAL SC SCH (05:22)
[2019-01-26] MEDS: LEVOTHYROXINE 125MCG TABLET (0.125MG) PO SCH (05:22)
[2019-01-26 06:00] VITALS: BP 129/81
[2019-01-26 06:51] LABS: BASO % 0.3 % (0.0-1.0); EOS # 0.2 10^3/uL (0.0-0.5); HEMATOCRIT 34.6 % (42.0-52.0); HEMOGLOBIN 11.5 g/dl (13.5-17.5); LYMPH # 1.2 10^3/uL (1.5-5.0); LYMPH % 19.5 % (24.0-44.0); MEAN CORPUSCULAR HEMOGLOBIN 29.7 pg (27.0-33.0); MEAN CORPUSCULAR HGB CONC 33.2 g/dl (32.0-36.5); MEAN CORPUSCULAR VOLUME 89.4 fl (80.0-96.0); MONO # 0.4 10^3/uL (0.0-0.8); MONO % 7.2 % (0.0-5.0); NEUTROPHILS # 4.2 10^3/uL (1.5-8.5); NEUTROPHILS % 69.7 % (36.0-66.0); PLATELET COUNT, AUTOMATED 190 10^3/uL (150-450); RED BLOOD COUNT 3.87 10^6/uL (4.30-6.10); WHITE BLOOD COUNT 6.1 10^3/uL (4.0-10.0)
[2019-01-26 07:11] LABS: BLOOD UREA NITROGEN 10 MG/DL (7-18); CALCIUM LEVEL 8.6 MG/DL (8.5-10.1); CARBON DIOXIDE LEVEL 28 MEQ/L (21-32); CHLORIDE LEVEL 104 MEQ/L (98-107); GLOMERULAR FILTRATION RATE > 60.0 (>60); GLUCOSE, FASTING 96 MG/DL (70-100); POTASSIUM SERUM 3.6 MEQ/L (3.5-5.1); SODIUM LEVEL 139 MEQ/L (136-145)
[2019-01-26] MEDS: ATORVASTATIN 10 MG TAB PO SCH (08:27)
[2019-01-26] MEDS: METAMUCIL (PSYLLIUM) PACKET PO SCH (08:27)
[2019-01-26] MEDS: ALVIMOPAN 12 MG CAPSULE (ENTEREG) PO SCH (08:27)
[2019-01-26 09:00] VITALS: O2SAT 95
[2019-01-26] MEDS ORDERED: PERCOCET PO (10:25)
--- NOTE | 2019-01-26 10:27 | DS.PDOC ---
Discharge Summary General Date of Admission Jan 22, 2019 at 05:50 Date of Discharge January 26, 2019 Attending Physician: JOIE MARTINES MD Discharge Summary PROCEDURES PERFORMED DURING STAY: Robotic-assisted laparoscopic sigmoid colectomy and takedown of colovesical fistula. ADMITTING DIAGNOSES: 1. Diverticulitis with colovesical fistula 2. History of inflammatory colitis suspected ulcerative colitis. DISCHARGE DIAGNOSES: 1. Diverticulitis with colovesical fistula status post sigmoid colon resection 2. History of inflammatory colitis suspected ulcerative colitis. COMPLICATIONS/CHIEF COMPLAINT: Diverticulitis, Colovesical Fistula. HISTORY OF PRESENT ILLNESS: Patient with left lower quadrant pain found to have evidence for colovesical fistula associated with diverticulitis. He is brought to the OR for sigmoid colectomy and takedown of his colovesical fistula.. HOSPITAL COURSE: Patient underwent robotic-assisted laparoscopic sigmoid colectomy and takedown of colovesical fistula. Procedure took a while due to the amount of adhesion, inflammation and bulkiness of the sigmoid colon. A [place] drain was left in place for postoperative monitoring. He did well hemodynamically intraoperatively and perioperatively. He was admitted to the [facility] floor. He was started on clear liquids after surgery. His postoperative course was fairly straightforward. He was advanced to soft diet the next day. He started passing flatus postop day 1 and has had small loose bowel movements by postop day 1 and regular bowel movements. Postop day 3. I The Wilkerson catheter up to postop day 3 due to the amount of dissection to the bladder and a history of colovesical fistula. After removing the Wilkerson catheter was able to void spontaneously. He remained afebrile throughout the course. He was subsequently discharged home once he was able to meet discharge criteria of tolerating regular food and having evidence of bowel function.. DISCHARGE MEDICATIONS: Please see below. ALLERGIES: Please see below. PHYSICAL EXAMINATION ON DISCHARGE: VITAL SIGNS: Please see below. GENERAL: Comfortable HEENT: Normocephalic, atraumatic pink palpebral conjunctiva, anicteric sclerae. NECK: Supple, no jugular venous distention CARDIOVASCULAR EXAMINATION:. Heart rate and rhythm without murmurs RESPIRATORY EXAMINATION: Clear breath sounds auscultation bilaterally without any wheezing ABDOMINAL EXAMINATION: Round, soft, mildly obese, minimally distended. Laparoscopic port sites are clean, dry and intact including that of the extraction site. Nontender on palpation EXTREMITIES: No edema SKIN: No skin rashes NEUROLOGICAL EXAMINATION: Awake, alert, oriented LABORATORY DATA: Please see below. IMAGING: None PROGNOSIS: Good ACTIVITY: Light activity 2 weeks, differences tolerated. DIET: Low residue diet DISCHARGE PLAN: Patient is discharged home. Follow up in clinic in 2 weeks. His mesalamine has been held with discussion with Dr. Elder DISPOSITION: . DISCHARGE INSTRUCTIONS: 1. As above 2. Follow up in clinic in 2 weeks for removal of carloz. ITEMS TO FOLLOWUP ON ON OUTPATIENT: 1. Pathology has been discussed with the patient 2. Mesalamine is on hold. Symptom check. DISCHARGE CONDITION: Stable. TIME SPENT ON DISCHARGE: Greater than 45 minutes. Vital Signs/I&Os Vital Signs Date Time Temp Pulse Resp B/P (MAP) Pulse Ox O2 Delivery O2 Flow Rate FiO2 01/26/19 09:22 18 01/26/19 09:00 95 Room Air 01/26/19 06:00 96.7 60 129/81 (97) 01/23/19 21:00 1.0 I&O- Last 24 Hours up to 6 AM 01/26/19 06:00 Intake Total 1020 ml Output Total 595 ml Balance 425 ml Laboratory Data Labs 24H Laboratory Tests 2 01/26/19 06:35: Immature Granulocyte % (Auto) 0.3, White Blood Count 6.1, Red Blood Count 3.87L, Hemoglobin 11.5L, Hematocrit 34.6L, Mean Corpuscular Volume 89.4, Mean Corpuscular Hemoglobin 29.7, Mean Corpuscular Hemoglobin Concent 33.2, Red Cell Distribution Width 13.5, Platelet Count 190, Neutrophils (%) (Auto) 69.7H, Lymphocytes (%) (Auto) 19.5L, Monocytes (%) (Auto) 7.2H, Eosinophils (%) (Auto) 3.0, Basophils (%) (Auto) 0.3, Neutrophils # (Auto) 4.2, Lymphocytes # (Auto) 1.2L, Monocytes # (Auto) 0.4, Eosinophils # (Auto) 0.2, Basophils # (Auto) 0.0, Nucleated Red Blood Cells % (auto) 0.0, Anion Gap 7L, Glomerular Filtration Rate > 60.0, Blood Urea Nitrogen 10, Creatinine 0.90, Sodium Level 139, Potassium Level 3.6, Chloride Level 104, Carbon Dioxide Level 28, Calcium Level 8.6 CBC/BMP Laboratory Tests 01/26/19 06:35 Red Blood Count 3.87 L, Mean Corpuscular Volume 89.4, Mean Corpuscular Hemoglobin 29.7, Mean Corpuscular Hemoglobin Concent 33.2, Red Cell Distribution Width 13.5, Neutrophils (%) (Auto) 69.7 H, Lymphocytes (%) (Auto) 19.5 L, Monocytes (%) (Auto) 7.2 H, Eosinophils (%) (Auto) 3.0, Basophils (%) (Auto) 0.3, Neutrophils # (Auto) 4.2, Lymphocytes # (Auto) 1.2 L, Monocytes # (Auto) 0.4, Eosinophils # (Auto) 0.2, Basophils # (Auto) 0.0, Calcium Level 8.6 Discharge Medications Scheduled Atorvastatin Calcium (Atorvastatin Calcium) 10 Mg Tab, 10 MG PO DAILY, (Reported) Celecoxib (Celebrex) 100 Mg Capsule, 100 MG PO BID, (Reported) Levothyroxine Sodium (Levoxyl) 150 Mcg Tab, 125 MCG PO DAILY, (Reported) Scheduled PRN Oxycodone/Acetaminophen (Oxycodone-Acetaminophen 5-325) 1 Each Tablet, 1-2 TAB PO Q4HP PRN for MODERATE PAIN (PS 5-7) Allergies Coded Allergies: Penicillins (Verified Allergy, Intermediate, rash/hives, 01/22/19) JOIE MARTINES MD Jan 26, 2019 10:27
[2019-01-26] MEDS: KETOROLAC 30 MG/ML VIAL (J1885) IV PRN (11:25)
== END 2019-01-26 12:35 | disposition home or self-care (01) | DRG 330 ==
LOC: M OR 05:50 → M MSPAV 13:59
PROVIDERS: ADMIT Surgery; ATTEND Surgery
PROC: 0T9780Z Drainage of Left Ureter with Drainage Device, Via Natural or Artificial Opening Endoscopic (ICD-10-PCS; 2019-01-22)
PROC: 8E0W4CZ Robotic Assisted Procedure of Trunk Region, Percutaneous Endoscopic Approach (ICD-10-PCS; 2019-01-22)
PROC: 0DBN4ZZ Excision of Sigmoid Colon, Percutaneous Endoscopic Approach (ICD-10-PCS; principal; 2019-01-22 07:30)
DX: K57.20 Diverticulitis of large intestine with perforation and abscess without bleeding (principal); N32.1 Vesicointestinal fistula; E78.00 Pure hypercholesterolemia, unspecified; M06.9 Rheumatoid arthritis, unspecified

== ENCOUNTER → 2019-02-09 | Outpatient (REF) | payer OTHER ==
[~2019-02-09] MED LIST changes: +NEOM500T PO; +PERCOCET PO
[2019-02-09 16:50] LABS: BASO # 0.1 10^3/uL (0.0-0.2); BASO % 0.7 % (0.0-1.0); EOS # 0.3 10^3/uL (0.0-0.5); EOS % 3.9 % (0.0-3.0); HEMATOCRIT 43.8 % (42.0-52.0); HEMOGLOBIN 13.9 g/dl (13.5-17.5); LYMPH % 27.8 % (24.0-44.0); MEAN CORPUSCULAR HEMOGLOBIN 29.4 pg (27.0-33.0); MEAN CORPUSCULAR HGB CONC 31.7 g/dl (32.0-36.5); MEAN CORPUSCULAR VOLUME 92.8 fl (80.0-96.0); MONO # 0.5 10^3/uL (0.0-0.8); MONO % 7.4 % (0.0-5.0); NEUTROPHILS # 4.4 10^3/uL (1.5-8.5); NEUTROPHILS % 59.9 % (36.0-66.0); PLATELET COUNT, AUTOMATED 297 10^3/uL (150-450); RED BLOOD COUNT 4.72 10^6/uL (4.30-6.10); WHITE BLOOD COUNT 7.3 10^3/uL (4.0-10.0)
[2019-02-09 17:02] LABS: ALBUMIN 3.7 GM/DL (3.2-5.2); ALT/SGPT 106 U/L (12-78); BILIRUBIN,TOTAL 0.4 MG/DL (0.2-1.0); BLOOD UREA NITROGEN 19 MG/DL (7-18); CALCIUM LEVEL 9.7 MG/DL (8.5-10.1); CARBON DIOXIDE LEVEL 29 MEQ/L (21-32); CHLORIDE LEVEL 103 MEQ/L (98-107); CHOLESTEROL LEVEL 196 MG/DL (<200); CREATININE FOR GFR 1.08 MG/DL (0.70-1.30); FREE T4 1.11 NG/DL (0.76-1.46); GLOMERULAR FILTRATION RATE > 60.0 (>60); GLUCOSE, FASTING 112 MG/DL (70-100); HDL CHOLESTEROL 46 MG/DL (>40); LDL CHOLESTEROL 133 MG/DL (<100); NON-HDL-C 150 MG/DL; POTASSIUM SERUM 4.6 MEQ/L (3.5-5.1); SODIUM LEVEL 139 MEQ/L (136-145); TOTAL PROTEIN 7.9 GM/DL (6.4-8.2); TRIGLYCERIDES LEVEL 84 MG/DL (<150)
[2019-02-09 17:16] LABS: HEMOGLOBIN A1c 5.6 %
== END ==
LOC: M SFHCCAPE 07:20
PROVIDERS: ATTEND Physician Assistant
DX: E78.00 Pure hypercholesterolemia, unspecified (principal); E89.0 Postprocedural hypothyroidism; R73.01 Impaired fasting glucose

== ENCOUNTER → 2019-02-11 | Outpatient (REF) | payer OTHER ==
[2019-02-11 19:40] LABS: APPEARANCE, URINE TURBID (CLEAR); BACTERIA, URINE AUTO NEGATIVE (NEGATIVE); BILIRUBIN, URINE AUTO NEGATIVE (NEGATIVE); BLOOD, URINE BLOOD NEGATIVE (NEGATIVE); COLOR, URINE AMBER (YELLOW); GLUCOSE, URINE (UA) AUTO NEGATIVE (NEGATIVE); KETONE, URINE AUTO NEGATIVE (NEGATIVE); LEUKOCYTE ESTERASE, URINE AUTO 1+ (NEGATIVE); NITRITE, URINE AUTO NEGATIVE (NEGATIVE); PROTEIN, URINE AUTO NEGATIVE (NEGATIVE); RBC, URINE AUTO 1 /HPF (0-3); SPECIFIC GRAVITY URINE AUTO 1.019 (1.002-1.035); SQUAMOUS EPITHELIAL CELL UR AU 0 /HPF (0-6); UROBILINOGEN, URINE AUTO 0.2 mg/dL (0.0-2.0); WBC, URINE AUTO 7 /HPF (0-3)
== END ==
LOC: M SFHCCAPE 07:48
PROVIDERS: ATTEND Physician Assistant
DX: R39.11 Hesitancy of micturition (principal)

== ENCOUNTER → 2019-02-18 | Outpatient (REF) | payer OTHER ==
[2019-02-18 17:21] LABS: ALBUMIN 3.7 GM/DL (3.2-5.2); ALT/SGPT 79 U/L (12-78); BILIRUBIN,DIRECT 0.1 MG/DL (0.0-0.2); BILIRUBIN,TOTAL 0.6 MG/DL (0.2-1.0); BLOOD UREA NITROGEN 12 MG/DL (7-18); CALCIUM LEVEL 9.1 MG/DL (8.5-10.1); CARBON DIOXIDE LEVEL 28 MEQ/L (21-32); CHLORIDE LEVEL 105 MEQ/L (98-107); CREATININE FOR GFR 1.03 MG/DL (0.70-1.30); GLOMERULAR FILTRATION RATE > 60.0 (>60); GLUCOSE, FASTING 116 MG/DL (70-100); SODIUM LEVEL 140 MEQ/L (136-145); TOTAL PROTEIN 7.3 GM/DL (6.4-8.2)
== END ==
LOC: M SFHCCAPE 07:04
PROVIDERS: ATTEND Physician Assistant
DX: R74.8 Abnormal levels of other serum enzymes (principal)

== ENCOUNTER 2019-04-03 06:49 | Day surgery (SDC) | payer OTHER ==
[~2019-04-03] VITALS: Ht 177.8 cm; Wt 97.5 kg
[~2019-04-03 06:49] MED LIST changes: +NS 1,000 ML IV ONE
[2019-04-03] MEDS ORDERED: LIDOCAINE 2% INJ 100 MG/5 ML SDV (FOR ANES.) As Ordered ONE (07:47)
[2019-04-03] MEDS ORDERED: PROPOFOL 200 MG/20 ML VIAL As Ordered ONE (07:47)
--- NOTE | 2019-04-03 08:39 | ROOR ---
Patient Name: Tashi Story Procedure Date: 04/03/2019 8:06 AM Date of : 1970 Age: 48 Room: [facility] Gender: Male Note Status: Finalized Procedure: Colonoscopy Indications: Follow-up of ulcerative colitis Providers: Aaron Elder MD Referring MD: OMID Marquez [id number] Requesting Provider: Shyam Stafford MD Medicines: Monitored Anesthesia Care Complications: No immediate complications. Procedure: Pre-Anesthesia Assessment: - Prior to the procedure, a History and Physical was performed, and patient medications and allergies were reviewed. The patient is competent. The risks and benefits of the procedure and the sedation options and risks were discussed with the patient. All questions were answered and informed consent was obtained. Patient identification and proposed procedure were verified by the physician, the nurse and the anesthesiologist in the procedure room. Mental Status Examination: alert and oriented. Respiratory Examination: clear to auscultation. CV Examination: normal. Prophylactic Antibiotics: The patient does not require prophylactic antibiotics. Prior Anticoagulants: The patient has taken no previous anticoagulant or antiplatelet agents. ASA Grade Assessment: II - A patient with mild systemic disease. After reviewing the risks and benefits, the patient was deemed in satisfactory condition to undergo the procedure. The anesthesia plan was to use monitored anesthesia care (MAC). Immediately prior to administration of medications, the patient was re-assessed for adequacy to receive sedatives. The heart rate, respiratory rate, oxygen saturations, blood pressure, adequacy of pulmonary ventilation, and response to care were monitored throughout the procedure. The physical status of the patient was re-assessed after the procedure. The colonoscopy was performed without difficulty. The patient tolerated the procedure well. The quality of the bowel preparation was good. The terminal ileum, ileocecal valve, appendiceal orifice, and rectum were photographed. Scope insertion time was 3 minutes. Scope withdrawal time was 8 minutes. The total duration of the procedure was 12 minutes. The Colonoscope was introduced through the anus and advanced to the terminal ileum, with identification of the appendiceal orifice and IC valve. Findings: The perianal and digital rectal examinations were normal. A scattered area of mucosa in the terminal ileum was mildly erythematous. Biopsies were taken with a cold forceps for histology. Verification of patient identification for the specimen was done by the physician and nurse using the patient's name, date and medical record number. Estimated blood loss was minimal. A localized area of mildly erythematous mucosa was found in the ascending colon. This was biopsied with a cold forceps for histology. There was evidence of a prior end-to-end colo-colonic anastomosis in the recto-sigmoid colon and at 12 cm proximal to the anus. This was patent and was characterized by healthy appearing mucosa and an intact staple line. The anastomosis was traversed. Normal mucosa was found from transverse colon to rectum. Biopsies for histology were taken with a cold forceps from the descending colon and rectum for evaluation of microscopic colitis. Non-bleeding external and internal hemorrhoids were found during retroflexion. The hemorrhoids were medium-sized. There is no endoscopic evidence of diverticula in the entire colon. Impression: - Erythematous mucosa in the terminal ileum. Biopsied. - Erythematous mucosa in the ascending colon. Biopsied. - Patent end-to-end colo-colonic anastomosis, characterized by an intact staple line and healthy appearing mucosa. - Normal mucosa from transverse colon to rectum. Biopsied. - Non-bleeding external and internal hemorrhoids. Recommendation: - Patient has a contact number available for emergencies. The signs and symptoms of potential delayed complications were discussed with the patient. Return to normal activities tomorrow. Written discharge instructions were provided to the patient. - High fiber diet. - Continue present medications. - Await pathology results. - Repeat colonoscopy in 10 years for screening purposes. - Telephone GI clinic for pathology results in 2 weeks. - Return to primary care physician. Aaron Elder MD Aaron Elder MD 04/03/2019 8:38:46 AM Electronically signed by Aaron Elder MD Number of Addenda: 0 Note Initiated On: 04/03/2019 8:06 AM Estimated Blood Loss: Estimated blood loss was minimal.
[2019-04-03 08:50] VITALS: BP 109/74
== END 2019-04-03 08:57 | disposition home or self-care (01) ==
LOC: M OPP 06:49
PROVIDERS: ATTEND Internal Medicine Gastroenterology
DX: K63.89 Other specified diseases of intestine (principal); K64.8 Other hemorrhoids; K51.90 Ulcerative colitis, unspecified, without complications; Z98.0 Intestinal bypass and anastomosis status; Z79.899 Other long term (current) drug therapy; Z88.0 Allergy status to penicillin; Z92.3 Personal history of irradiation

== ENCOUNTER → 2019-05-18 | Outpatient (REF) | payer OTHER ==
[~2019-05-18] MED LIST changes: -NS 1,000 ML IV ONE; -RANI-356 PO; +RANI-397 PO
[2019-05-18 17:07] LABS: HEMOGLOBIN A1c 6.2 %
[2019-05-18 17:18] LABS: ALBUMIN 3.6 GM/DL (3.2-5.2); ALT/SGPT 49 U/L (12-78); BILIRUBIN,DIRECT 0.2 MG/DL (0.0-0.2); BILIRUBIN,TOTAL 0.7 MG/DL (0.2-1.0); BLOOD UREA NITROGEN 12 MG/DL (7-18); CALCIUM LEVEL 9.3 MG/DL (8.5-10.1); CARBON DIOXIDE LEVEL 24 MEQ/L (21-32); CHLORIDE LEVEL 103 MEQ/L (98-107); CHOLESTEROL LEVEL 163 MG/DL (<200); CHOLESTEROL RISK RATIO 4.179 (<5); CREATININE FOR GFR 0.98 MG/DL (0.70-1.30); FREE T4 1.23 NG/DL (0.76-1.46); GLOMERULAR FILTRATION RATE > 60.0 (>60); GLUCOSE, FASTING 116 MG/DL (70-100); HDL CHOLESTEROL 39 MG/DL (>40); LDL CHOLESTEROL 103 MG/DL (<100); NON-HDL-C 124 MG/DL; POTASSIUM SERUM 4.3 MEQ/L (3.5-5.1); SODIUM LEVEL 138 MEQ/L (136-145); THYROID STIMULATING HORMONE 0.848 uIU/ML (0.358-3.740); TOTAL PROTEIN 7.7 GM/DL (6.4-8.2); TRIGLYCERIDES LEVEL 103 MG/DL (<150)
== END ==
LOC: M SFHCCAPE 07:10
PROVIDERS: ATTEND Physician Assistant
DX: E89.0 Postprocedural hypothyroidism (principal); R73.01 Impaired fasting glucose; E78.00 Pure hypercholesterolemia, unspecified; R74.8 Abnormal levels of other serum enzymes

== ENCOUNTER → 2020-03-03 | Outpatient (REF) | payer OTHER ==
[2020-03-03 11:51] LABS: BASO % 0.9 % (0.0-1.0); EOS # 0.1 10^3/uL (0.0-0.5); EOS % 1.1 % (0.0-3.0); HEMATOCRIT 41.7 % (42.0-52.0); HEMOGLOBIN 13.9 g/dl (13.5-17.5); LYMPH # 1.1 10^3/uL (1.5-5.0); LYMPH % 24.3 % (24.0-44.0); MEAN CORPUSCULAR HEMOGLOBIN 30.9 pg (27.0-33.0); MEAN CORPUSCULAR HGB CONC 33.3 g/dl (32.0-36.5); MEAN CORPUSCULAR VOLUME 92.7 fl (80.0-96.0); MONO # 0.5 10^3/uL (0.0-0.8); MONO % 12.3 % (0.0-5.0); NEUTROPHILS # 2.7 10^3/uL (1.5-8.5); NEUTROPHILS % 61.2 % (36.0-66.0); PLATELET COUNT, AUTOMATED 199 10^3/uL (150-450); WHITE BLOOD COUNT 4.4 10^3/uL (4.0-10.0)
[2020-03-03 12:31] LABS: ALBUMIN 4.1 GM/DL (3.2-5.2); ALT/SGPT 40 U/L (12-78); BILIRUBIN,TOTAL 0.6 MG/DL (0.2-1.0); BLOOD UREA NITROGEN 17 MG/DL (7-18); CALCIUM LEVEL 9.3 MG/DL (8.5-10.1); CARBON DIOXIDE LEVEL 28 MEQ/L (21-32); CHLORIDE LEVEL 103 MEQ/L (98-107); CHOLESTEROL LEVEL 170 MG/DL (<200); CHOLESTEROL RISK RATIO 3.469 (<5); CREATININE FOR GFR 1.19 MG/DL (0.70-1.30); FREE T4 1.02 NG/DL (0.76-1.46); GLOMERULAR FILTRATION RATE > 60.0 (>60); GLUCOSE, FASTING 105 MG/DL (70-100); HDL CHOLESTEROL 49 MG/DL (>40); LDL CHOLESTEROL 100 MG/DL (<100); NON-HDL-C 121 MG/DL; POTASSIUM SERUM 4.5 MEQ/L (3.5-5.1); SODIUM LEVEL 136 MEQ/L (136-145); TOTAL PROTEIN 7.5 GM/DL (6.4-8.2); TRIGLYCERIDES LEVEL 106 MG/DL (<150)
[2020-03-03 12:56] LABS: HEMOGLOBIN A1c 5.3 %
== END ==
LOC: M SFHCCLAY 07:09
PROVIDERS: ATTEND Physician Assistant
DX: E78.00 Pure hypercholesterolemia, unspecified (principal); E89.0 Postprocedural hypothyroidism; R73.01 Impaired fasting glucose

== ENCOUNTER → 2020-08-30 | Outpatient (REF) | payer OTHER ==
[2020-08-30 16:27] LABS: BASO % 0.9 % (0.0-1.0); EOS % 0.3 % (0.0-3.0); HEMOGLOBIN 14.2 g/dl (13.5-17.5); LYMPH # 0.7 10^3/uL (1.5-5.0); LYMPH % 20.4 % (24.0-44.0); MEAN CORPUSCULAR HEMOGLOBIN 31.9 pg (27.0-33.0); MEAN CORPUSCULAR HGB CONC 33.8 g/dl (32.0-36.5); MEAN CORPUSCULAR VOLUME 94.4 fl (80.0-96.0); MONO # 0.5 10^3/uL (0.0-0.8); MONO % 14.1 % (2.0-8.0); NEUTROPHILS # 2.1 10^3/uL (1.5-8.5); PLATELET COUNT, AUTOMATED 200 10^3/uL (150-450); RED BLOOD COUNT 4.45 10^6/uL (4.30-6.10); WHITE BLOOD COUNT 3.3 10^3/uL (4.0-10.0)
[2020-08-30 16:52] LABS: ALBUMIN 4.2 GM/DL (3.2-5.2); ALT/SGPT 36 U/L (12-78); BILIRUBIN,TOTAL 0.4 MG/DL (0.2-1.0); BLOOD UREA NITROGEN 19 MG/DL (7-18); CALCIUM LEVEL 9.3 MG/DL (8.5-10.1); CARBON DIOXIDE LEVEL 29 MEQ/L (21-32); CHLORIDE LEVEL 103 MEQ/L (98-107); CHOLESTEROL LEVEL 166 MG/DL (<200); CHOLESTEROL RISK RATIO 4.048 (<5); CREATININE FOR GFR 1.14 MG/DL (0.70-1.30); FREE T4 0.98 NG/DL (0.76-1.46); GLOMERULAR FILTRATION RATE > 60.0 (>60); GLUCOSE, FASTING 110 MG/DL (70-100); HDL CHOLESTEROL 41 MG/DL (>40); LDL CHOLESTEROL 108 MG/DL (<100); NON-HDL-C 125 MG/DL; POTASSIUM SERUM 4.5 MEQ/L (3.5-5.1); SODIUM LEVEL 138 MEQ/L (136-145); TOTAL PROTEIN 7.7 GM/DL (6.4-8.2); TRIGLYCERIDES LEVEL 87 MG/DL (<150)
[2020-08-30 17:18] LABS: HEMOGLOBIN A1c 5.1 %
== END ==
LOC: M SFHCCAPE 07:10
PROVIDERS: ATTEND Physician Assistant
DX: E78.00 Pure hypercholesterolemia, unspecified (principal)

== ENCOUNTER → 2020-11-01 | Outpatient (REF) | payer OTHER ==
[2020-11-01 17:23] LABS: FREE T4 0.98 NG/DL (0.76-1.46); THYROID STIMULATING HORMONE 12.8 uIU/ML (0.358-3.740)
== END ==
LOC: M SFHCCAPE 07:03
PROVIDERS: ATTEND Physician Assistant
DX: E89.0 Postprocedural hypothyroidism (principal)

== ENCOUNTER → 2020-12-15 | Outpatient (REF) | payer OTHER ==
[2020-12-15 17:07] LABS: HEMOGLOBIN A1c 5.5 %
[2020-12-15 17:17] LABS: BASO % 0.7 % (0.0-1.0); EOS # 0.1 10^3/uL (0.0-0.5); EOS % 2.3 % (0.0-3.0); HEMATOCRIT 39.9 % (42.0-52.0); HEMOGLOBIN 13.2 g/dl (13.5-17.5); LYMPH # 0.5 10^3/uL (1.5-5.0); LYMPH % 16.3 % (24.0-44.0); MEAN CORPUSCULAR HEMOGLOBIN 31.8 pg (27.0-33.0); MEAN CORPUSCULAR HGB CONC 33.1 g/dl (32.0-36.5); MEAN CORPUSCULAR VOLUME 96.1 fl (80.0-96.0); MONO # 0.5 10^3/uL (0.0-0.8); MONO % 15.7 % (2.0-8.0); PLATELET COUNT, AUTOMATED 198 10^3/uL (150-450); RED BLOOD COUNT 4.15 10^6/uL (4.30-6.10)
[2020-12-15 17:31] LABS: ALBUMIN 3.8 GM/DL (3.2-5.2); ALT/SGPT 46 U/L (12-78); BILIRUBIN,TOTAL 0.5 MG/DL (0.2-1.0); BLOOD UREA NITROGEN 15 MG/DL (7-18); CALCIUM LEVEL 8.6 MG/DL (8.5-10.1); CARBON DIOXIDE LEVEL 26 MEQ/L (21-32); CHLORIDE LEVEL 106 MEQ/L (98-107); CHOLESTEROL LEVEL 152 MG/DL (<200); CHOLESTEROL RISK RATIO 3.619 (<5); CREATININE FOR GFR 1.06 MG/DL (0.70-1.30); FOLATE 8.7 NG/ML; FREE T4 1.04 NG/DL (0.76-1.46); GLOMERULAR FILTRATION RATE > 60.0 (>60); GLUCOSE, FASTING 107 MG/DL (70-100); HDL CHOLESTEROL 42 MG/DL (>40); LDL CHOLESTEROL 93 MG/DL (<100); NON-HDL-C 110 MG/DL; POTASSIUM SERUM 4.3 MEQ/L (3.5-5.1); SODIUM LEVEL 138 MEQ/L (136-145); TOTAL PROTEIN 6.9 GM/DL (6.4-8.2); TRIGLYCERIDES LEVEL 85 MG/DL (<150); VITAMIN B12 LEVEL 306 PG/ML
== END ==
LOC: M SFHCCAPE 07:10
PROVIDERS: ATTEND Physician Assistant
DX: R20.2 Paresthesia of skin (principal); R73.01 Impaired fasting glucose; E89.0 Postprocedural hypothyroidism; E78.00 Pure hypercholesterolemia, unspecified

== ENCOUNTER → 2021-01-19 | Outpatient (REF) | payer OTHER | LOC: M SFHCCAPE 13:58 | PROVIDERS: ATTEND Physician Assistant | DX: R35.0 Frequency of micturition (principal) ==

== ENCOUNTER → 2021-02-07 | Outpatient (REF) | payer OTHER ==
[2021-02-07 13:52] LABS: APPEARANCE, URINE CLEAR (CLEAR); BACTERIA, URINE AUTO NEGATIVE (NEGATIVE); BILIRUBIN, URINE AUTO NEGATIVE (NEGATIVE); BLOOD, URINE BLOOD NEGATIVE (NEGATIVE); COLOR, URINE AMBER (YELLOW); GLUCOSE, URINE (UA) AUTO NEGATIVE (NEGATIVE); KETONE, URINE AUTO NEGATIVE (NEGATIVE); LEUKOCYTE ESTERASE, URINE AUTO NEGATIVE (NEGATIVE); MUCUS, URINE SMALL (NEGATIVE); NITRITE, URINE AUTO NEGATIVE (NEGATIVE); PROTEIN, URINE AUTO NEGATIVE (NEGATIVE); RBC, URINE AUTO 0 /HPF (0-3); SPECIFIC GRAVITY URINE AUTO 1.019 (1.002-1.035); SQUAMOUS EPITHELIAL CELL UR AU 0 /HPF (0-6); UROBILINOGEN, URINE AUTO 0.2 mg/dL (0.0-2.0); WBC, URINE AUTO 0 /HPF (0-3)
== END ==
LOC: M SMT 12:53
PROVIDERS: ATTEND Nurse Practitioner Women's Health
DX: R35.0 Frequency of micturition (principal)

== ENCOUNTER → 2021-02-16 | Outpatient (REF) | payer OTHER ==
[2021-02-16 17:30] LABS: BASO % 0.6 % (0.0-1.0); EOS # 0.1 10^3/uL (0.0-0.5); EOS % 2.3 % (0.0-3.0); LYMPH # 0.6 10^3/uL (1.5-5.0); LYMPH % 16.9 % (24.0-44.0); MEAN CORPUSCULAR HEMOGLOBIN 31.2 pg (27.0-33.0); MEAN CORPUSCULAR HGB CONC 33.3 g/dl (32.0-36.5); MEAN CORPUSCULAR VOLUME 93.5 fl (80.0-96.0); MONO # 0.5 10^3/uL (0.0-0.8); MONO % 13.7 % (2.0-8.0); NEUTROPHILS # 2.3 10^3/uL (1.5-8.5); NEUTROPHILS % 66.2 % (36.0-66.0); PLATELET COUNT, AUTOMATED 189 10^3/uL (150-450); RED BLOOD COUNT 4.49 10^6/uL (4.30-6.10); WHITE BLOOD COUNT 3.5 10^3/uL (4.0-10.0)
[2021-02-16 18:41] LABS: ALT/SGPT 52 U/L (12-78); BILIRUBIN,TOTAL 0.3 MG/DL (0.2-1.0); BLOOD UREA NITROGEN 19 MG/DL (7-18); CALCIUM LEVEL 9.4 MG/DL (8.5-10.1); CARBON DIOXIDE LEVEL 27 MEQ/L (21-32); CHLORIDE LEVEL 102 MEQ/L (98-107); CREATININE FOR GFR 1.01 MG/DL (0.70-1.30); FREE T4 1.31 NG/DL (0.76-1.46); GLOMERULAR FILTRATION RATE > 60.0 (>60); GLUCOSE, FASTING 114 MG/DL (70-100); POTASSIUM SERUM 4.7 MEQ/L (3.5-5.1); SODIUM LEVEL 137 MEQ/L (136-145); TOTAL PROTEIN 7.3 GM/DL (6.4-8.2)
== END ==
LOC: M SFHCCAPE 07:12
PROVIDERS: ATTEND Nurse Practitioner Women's Health
DX: Z12.5 Encounter for screening for malignant neoplasm of prostate (principal); E89.0 Postprocedural hypothyroidism
CPT/HCPCS: 80053; 84439; 84443; 85025; G0103

== ENCOUNTER → 2021-10-04 | Outpatient (REF) | payer OTHER ==
[2021-10-04 16:24] LABS: BASO % 0.7 % (0.0-1.0); EOS % 0.2 % (0.0-3.0); HEMATOCRIT 38.8 % (42.0-52.0); HEMOGLOBIN 13.1 g/dl (13.5-17.5); LYMPH # 0.6 10^3/uL (1.5-5.0); LYMPH % 13.1 % (24.0-44.0); MEAN CORPUSCULAR HEMOGLOBIN 31.5 pg (27.0-33.0); MEAN CORPUSCULAR HGB CONC 33.8 g/dl (32.0-36.5); MEAN CORPUSCULAR VOLUME 93.3 fl (80.0-96.0); MONO # 0.5 10^3/uL (0.0-0.8); MONO % 11.9 % (2.0-8.0); NEUTROPHILS # 3.1 10^3/uL (1.5-8.5); NEUTROPHILS % 73.9 % (36.0-66.0); PLATELET COUNT, AUTOMATED 222 10^3/uL (150-450); RED BLOOD COUNT 4.16 10^6/uL (4.30-6.10); WHITE BLOOD COUNT 4.2 10^3/uL (4.0-10.0)
[2021-10-04 16:53] LABS: ALBUMIN 3.8 GM/DL (3.2-5.2); ALT/SGPT 43 U/L (12-78); BILIRUBIN,TOTAL 0.5 MG/DL (0.2-1.0); BLOOD UREA NITROGEN 17 MG/DL (7-18); CALCIUM LEVEL 9.4 MG/DL (8.5-10.1); CARBON DIOXIDE LEVEL 27 MEQ/L (21-32); CHLORIDE LEVEL 107 MEQ/L (98-107); CHOLESTEROL LEVEL 155 MG/DL (<200); CREATININE FOR GFR 0.86 MG/DL (0.70-1.30); FREE T4 1.39 NG/DL (0.76-1.46); GLOMERULAR FILTRATION RATE > 60.0 (>56); GLUCOSE, FASTING 118 MG/DL (70-100); HDL CHOLESTEROL 42 MG/DL (>40); LDL CHOLESTEROL 98 MG/DL (<100); NON-HDL-C 113 MG/DL; POTASSIUM SERUM 3.8 MEQ/L (3.5-5.1); SODIUM LEVEL 141 MEQ/L (136-145); TRIGLYCERIDES LEVEL 77 MG/DL (<150)
[2021-10-04 16:55] LABS: HEMOGLOBIN A1c 4.9 %
== END ==
LOC: M SFHCCAPE 07:19
PROVIDERS: ATTEND Physician Assistant
DX: E78.00 Pure hypercholesterolemia, unspecified (principal); R73.09 Other abnormal glucose; E89.0 Postprocedural hypothyroidism

== ENCOUNTER → 2022-02-14 | Outpatient (REF) | payer OTHER ==
[2022-02-14 19:22] LABS: FREE T4 1.15 NG/DL (0.76-1.46); THYROID STIMULATING HORMONE 1.62 uIU/ML (0.358-3.740)
== END ==
LOC: M SFHCCAPE 07:16
PROVIDERS: ATTEND Physician Assistant
DX: E89.0 Postprocedural hypothyroidism (principal); Z12.5 Encounter for screening for malignant neoplasm of prostate
CPT/HCPCS: 84439; 84443; G0103

== ENCOUNTER 2022-06-20 08:08 | Emergency (ER) | payer OTHER ==
[~2022-06-20] VITALS: Ht 177.8 cm; Wt 109.1 kg
[2022-06-20] MEDS ORDERED: SULF500T2 (08:19)
[2022-06-20] MEDS ORDERED: LIDOCAINE 4% CREAM 5GM (LMX4) TOP ONE (11:20)
[2022-06-20] MEDS ORDERED: ACETAMINOPHEN 500 MG TAB PO ONE (11:25)
[2022-06-20 11:55] VITALS: BP 130/79
== END 2022-06-20 12:15 | disposition home or self-care (01) ==
LOC: M ED 08:08
DX: S01.01XA Laceration without foreign body of scalp, initial encounter (principal); W01.198A Fall on same level from slipping, tripping and stumbling with subsequent striking against other object, initial encounter; E78.5 Hyperlipidemia, unspecified; Z88.0 Allergy status to penicillin; Z79.02 Long term (current) use of antithrombotics/antiplatelets; Z79.1 Long term (current) use of non-steroidal anti-inflammatories (NSAID); Z79.899 Other long term (current) drug therapy; Y92.410 Unspecified street and highway as the place of occurrence of the external cause

== ENCOUNTER 2022-06-29 06:57 | Emergency (ER) | payer OTHER ==
[~2022-06-29] VITALS: Ht 177.8 cm; Wt 100.1 kg
[~2022-06-29 06:57] MED LIST changes: +SULF500T2
[2022-06-29 06:58] VITALS: BP 147/81
== END 2022-06-29 07:47 | disposition home or self-care (01) ==
LOC: M ED 06:57
DX: Z48.02 Encounter for removal of sutures (principal); Z88.0 Allergy status to penicillin

== ENCOUNTER → 2022-08-20 | Outpatient (REF) | payer OTHER ==
[2022-08-20 18:18] LABS: HEMOGLOBIN A1c 5.3 % (4.0-6.0)
[2022-08-20 18:27] LABS: ALBUMIN 4.2 G/DL (3.2-5.2); ALKALINE PHOSPHATASE 83 U/L (46-116); ALT/SGPT 60 U/L (7.0-40); AST/SGOT 24 U/L (<34); BILIRUBIN,TOTAL 0.4 MG/DL (0.3-1.2); BLOOD UREA NITROGEN 21 MG/DL (9-23); CALCIUM LEVEL 9.2 MG/DL (8.5-10.1); CARBON DIOXIDE LEVEL 29 MMOL/L (20-31); CHLORIDE LEVEL 104 MMOL/L (98-107); CHOLESTEROL LEVEL 174 MG/DL (<200); CHOLESTEROL RISK RATIO 3.99 (<5); CREATININE FOR GFR 0.99 MG/DL (0.70-1.30); GLOMERULAR FILTRATION RATE > 60.0 (>56); GLUCOSE, FASTING 117 MG/DL (60-100); HDL CHOLESTEROL 43.6 MG/DL (>40); NON-HDL-C 130.4 MG/DL; POTASSIUM SERUM 4.5 MMOL/L (3.5-5.1); SODIUM LEVEL 139 MMOL/L (136-145); TOTAL PROTEIN 7.1 G/DL (5.7-8.2); TRIGLYCERIDES LEVEL 137 MG/DL (<150)
[2022-08-20 18:29] LABS: FREE T4 0.78 NG/DL (0.89-1.76); THYROID STIMULATING HORMONE 21.022 uIU/ML (0.55-4.78)
== END ==
LOC: M SFHCCAPE 07:11
PROVIDERS: ATTEND Physician Assistant
DX: E78.00 Pure hypercholesterolemia, unspecified (principal); E89.0 Postprocedural hypothyroidism; R73.09 Other abnormal glucose

== ENCOUNTER → 2022-10-18 | Outpatient (REF) | payer OTHER ==
[2022-10-18 19:44] LABS: FREE T4 1.25 NG/DL (0.89-1.76); THYROID STIMULATING HORMONE 2.888 uIU/ML (0.55-4.78)
== END ==
LOC: M SFHCCAPE 07:22
PROVIDERS: ATTEND Physician Assistant
DX: E89.0 Postprocedural hypothyroidism (principal)

== ENCOUNTER → 2023-02-21 | Outpatient (REF) | payer OTHER ==
[2023-02-21 18:34] LABS: BASO # 0.1 10^3/uL (0.0-0.2); BASO % 1.2 % (0.0-1.0); EOS # 0.1 10^3/uL (0.0-0.5); EOS % 2.8 % (0.0-3.0); HEMATOCRIT 42.8 % (42.0-52.0); HEMOGLOBIN 14.3 g/dl (13.5-17.5); LYMPH # 0.6 10^3/uL (1.5-5.0); LYMPH % 13.3 % (24.0-44.0); MEAN CORPUSCULAR HGB CONC 33.4 g/dl (32.0-36.5); MEAN CORPUSCULAR VOLUME 92.8 fl (80.0-96.0); MONO # 0.5 10^3/uL (0.0-0.8); MONO % 11.2 % (2.0-8.0); NEUTROPHILS # 3.1 10^3/uL (1.5-8.5); NEUTROPHILS % 71.3 % (36.0-66.0); PLATELET COUNT, AUTOMATED 212 10^3/uL (150-450); RED BLOOD COUNT 4.61 10^6/uL (4.30-6.10); WHITE BLOOD COUNT 4.3 10^3/uL (4.0-10.0)
[2023-02-21 18:44] LABS: ALBUMIN 4.1 G/DL (3.2-5.2); ALKALINE PHOSPHATASE 91 U/L (46-116); ALT/SGPT 52 U/L (7.0-40); AST/SGOT 41 U/L (<34); BILIRUBIN,TOTAL 0.5 MG/DL (0.3-1.2); BLOOD UREA NITROGEN 16 MG/DL (9-23); CALCIUM LEVEL 9.4 MG/DL (8.5-10.1); CARBON DIOXIDE LEVEL 27 MMOL/L (20-31); CHLORIDE LEVEL 103 MMOL/L (98-107); CHOLESTEROL LEVEL 151 MG/DL (<200); CHOLESTEROL RISK RATIO 3.62 (<5); CREATININE FOR GFR 0.99 MG/DL (0.70-1.30); GLOMERULAR FILTRATION RATE > 60.0 (>56); GLUCOSE, FASTING 120 MG/DL (60-100); HDL CHOLESTEROL 41.6 MG/DL (>40); LDL CHOLESTEROL 91.4 MG/DL (<100); NON-HDL-C 109.4 MG/DL; POTASSIUM SERUM 4.5 MMOL/L (3.5-5.1); SODIUM LEVEL 137 MMOL/L (136-145); TRIGLYCERIDES LEVEL 90 MG/DL (<150)
[2023-02-21 18:47] LABS: TOTAL 25(OH) VITAMIN D 31.5 NG/ML (20.0-100.0)
[2023-02-21 18:48] LABS: FREE T4 1.23 NG/DL (0.89-1.76); THYROID STIMULATING HORMONE 5.052 uIU/ML (0.55-4.78)
[2023-02-21 18:55] LABS: HEMOGLOBIN A1c 5.2 % (4.0-6.0)
== END ==
LOC: M SFHCCAPE 07:11
PROVIDERS: ATTEND Physician Assistant Medical
DX: E78.00 Pure hypercholesterolemia, unspecified (principal); R73.09 Other abnormal glucose; Z12.5 Encounter for screening for malignant neoplasm of prostate
CPT/HCPCS: 80053; 80061; 82306; 83036; 84439; 84443; 85025; G0103

== ENCOUNTER → 2023-08-27 | Outpatient (REF) | payer OTHER ==
[2023-08-27 18:15] LABS: BASO # 0.1 10^3/uL (0.0-0.2); BASO % 1.2 % (0.0-1.0); EOS # 0.1 10^3/uL (0.0-0.5); EOS % 2.7 % (0.0-3.0); HEMATOCRIT 42.6 % (42.0-52.0); HEMOGLOBIN 14.4 g/dl (13.5-17.5); LYMPH # 0.6 10^3/uL (1.5-5.0); LYMPH % 12.6 % (24.0-44.0); MEAN CORPUSCULAR HGB CONC 33.8 g/dl (32.0-36.5); MEAN CORPUSCULAR VOLUME 91.6 fl (80.0-96.0); MONO # 0.5 10^3/uL (0.0-0.8); MONO % 11.2 % (2.0-8.0); NEUTROPHILS # 3.5 10^3/uL (1.5-8.5); NEUTROPHILS % 72.1 % (36.0-66.0); PLATELET COUNT, AUTOMATED 198 10^3/uL (150-450); RED BLOOD COUNT 4.65 10^6/uL (4.30-6.10); WHITE BLOOD COUNT 4.8 10^3/uL (4.0-10.0)
[2023-08-27 18:51] LABS: ALBUMIN 3.8 G/DL (3.2-5.2); ALKALINE PHOSPHATASE 101 U/L (46-116); ALT/SGPT 35 U/L (7.0-40); AST/SGOT 32 U/L (<34); BILIRUBIN,TOTAL 0.4 MG/DL (0.3-1.2); BLOOD UREA NITROGEN 17 MG/DL (9-23); CALCIUM LEVEL 9.5 MG/DL (8.5-10.1); CARBON DIOXIDE LEVEL 27 MMOL/L (20-31); CHLORIDE LEVEL 102 MMOL/L (98-107); CREATININE FOR GFR 1.01 MG/DL (0.70-1.30); GLOMERULAR FILTRATION RATE > 60.0 (>56); GLUCOSE, FASTING 122 MG/DL (60-100); POTASSIUM SERUM 4.5 MMOL/L (3.5-5.1); SODIUM LEVEL 134 MMOL/L (136-145); TOTAL PROTEIN 6.9 G/DL (5.7-8.2)
[2023-08-27 18:52] LABS: FREE T4 1.07 NG/DL (0.89-1.76)
[2023-08-27 18:53] LABS: THYROID STIMULATING HORMONE 9.086 uIU/ML (0.55-4.78)
== END ==
LOC: M SFHCCAPE 07:12
PROVIDERS: ATTEND Physician Assistant Medical
DX: E89.0 Postprocedural hypothyroidism (principal); K21.9 Gastro-esophageal reflux disease without esophagitis; M06.09 Rheumatoid arthritis without rheumatoid factor, multiple sites

== ENCOUNTER → 2024-02-27 | Outpatient (REF) | payer OTHER ==
[2024-02-27 17:56] LABS: CHOLESTEROL RISK RATIO 4.18 (<5); FREE T4 1.44 NG/DL (0.89-1.76); HDL CHOLESTEROL 35.1 MG/DL (>40); LDL CHOLESTEROL 91.1 MG/DL (<100); NON-HDL-C 111.9 MG/DL
[2024-02-27 17:57] LABS: THYROID STIMULATING HORMONE 2.009 uIU/ML (0.55-4.78)
== END ==
LOC: M SFHCCAPE 07:10
PROVIDERS: ATTEND Physician Assistant Medical
DX: E89.0 Postprocedural hypothyroidism (principal); E78.00 Pure hypercholesterolemia, unspecified

== ENCOUNTER → 2024-08-31 | Outpatient (REF) | payer OTHER ==
[2024-08-31 18:29] LABS: BASO # 0.1 10^3/uL (0.0-0.2); BASO % 0.8 % (0.0-1.0); EOS # 0.2 10^3/uL (0.0-0.5); EOS % 2.8 % (0.0-3.0); HEMATOCRIT 43.8 % (42.0-52.0); HEMOGLOBIN 14.6 g/dl (13.5-17.5); LYMPH % 17.3 % (24.0-44.0); MEAN CORPUSCULAR HEMOGLOBIN 29.3 pg (27.0-33.0); MEAN CORPUSCULAR HGB CONC 33.3 g/dl (32.0-36.5); MONO # 0.6 10^3/uL (0.0-0.8); MONO % 9.8 % (2.0-8.0); NEUTROPHILS # 4.2 10^3/uL (1.5-8.5); PLATELET COUNT, AUTOMATED 231 10^3/uL (150-450); RED BLOOD COUNT 4.98 10^6/uL (4.30-6.10)
[2024-08-31 18:30] LABS: ALKALINE PHOSPHATASE 103 U/L (40-129); ALT/SGPT 55 U/L (7.0-40); AST/SGOT 38 U/L (<34); BILIRUBIN,TOTAL 0.7 MG/DL (0.3-1.2); BLOOD UREA NITROGEN 20 MG/DL (9-23); CALCIUM LEVEL 9.1 MG/DL (8.5-10.1); CARBON DIOXIDE LEVEL 27 MMOL/L (20-31); CHLORIDE LEVEL 100 MMOL/L (98-107); CREATININE FOR GFR 0.85 MG/DL (0.70-1.30); GLOMERULAR FILTRATION RATE > 90.0 (>56); GLUCOSE, FASTING 215 MG/DL (60-100); POTASSIUM SERUM 4.1 MMOL/L (3.5-5.1); PSA SCREENING 0.43 NG/ML (< 4.00); SODIUM LEVEL 134 MMOL/L (136-145); TOTAL PROTEIN 7.2 G/DL (5.7-8.2)
[2024-08-31 18:33] LABS: THYROID STIMULATING HORMONE 1.106 uIU/ML (0.55-4.78)
[2024-08-31 18:42] LABS: HEMOGLOBIN A1c 10.1 % (4.0-6.0)
== END ==
LOC: M SFHCCAPE 07:13
PROVIDERS: ATTEND Physician Assistant Medical
DX: K21.9 Gastro-esophageal reflux disease without esophagitis (principal); M06.09 Rheumatoid arthritis without rheumatoid factor, multiple sites; E89.0 Postprocedural hypothyroidism; R73.01 Impaired fasting glucose; Z12.5 Encounter for screening for malignant neoplasm of prostate
CPT/HCPCS: 80053; 83036; 84439; 84443; 85025; G0103

== ENCOUNTER → 2024-12-08 | Outpatient (REF) | payer OTHER ==
[~2024-12-08] MED LIST changes: +APAP325T4 PO; +IBUP200C27 PO; +METF500T13 PO; +PANT20TA6 PO
[2024-12-08 18:07] LABS: ALT/SGPT 46 U/L (7.0-40); AST/SGOT 28 U/L (<34); CALCIUM LEVEL 9.5 MG/DL (8.5-10.1); CARBON DIOXIDE LEVEL 24 MMOL/L (20-31); CHLORIDE LEVEL 103 MMOL/L (98-107); CREATININE FOR GFR 0.89 MG/DL (0.70-1.30); GLOMERULAR FILTRATION RATE > 90.0 (>56); POTASSIUM SERUM 3.9 MMOL/L (3.5-5.1); SODIUM LEVEL 141 MMOL/L (136-145)
[2024-12-08 18:50] LABS: ESTIMATED AVERAGE GLUCOSE 148.0 MG/DL (60-110)
== END ==
LOC: M SFHCCAPE 07:09
PROVIDERS: ATTEND Physician Assistant Medical
DX: E11.9 Type 2 diabetes mellitus without complications (principal)

== ENCOUNTER → 2024-12-10 | Outpatient (REF) | payer OTHER ==
[2024-12-10 18:33] LABS: CREATININE, URINE 103.3 MG/DL; MALB URINE SIEMENS 3.0 MG/L
[2024-12-10 22:36] LABS: MAU/CREAT RATIO 29.0 MCG/MG (0.0-30.0)
== END ==
LOC: M SFHCCAPE 07:18
PROVIDERS: ATTEND Physician Assistant Medical
DX: E11.9 Type 2 diabetes mellitus without complications (principal)

== ENCOUNTER → 2025-04-06 | Outpatient (REF) | payer OTHER ==
[2025-04-06 18:39] LABS: FREE T4 1.93 NG/DL (0.89-1.76)
[2025-04-06 18:40] LABS: ALT/SGPT 40 U/L (7.0-40); AST/SGOT 28 U/L (<34); CALCIUM LEVEL 9.6 MG/DL (8.5-10.1); CARBON DIOXIDE LEVEL 25 MMOL/L (20-31); CHLORIDE LEVEL 104 MMOL/L (98-107); CHOLESTEROL LEVEL 158 MG/DL (<200); CHOLESTEROL RISK RATIO 3.77 (<5); CREATININE FOR GFR 0.85 MG/DL (0.70-1.30); GLOMERULAR FILTRATION RATE > 90.0 (>56); LDL CHOLESTEROL 97.2 MG/DL (<100); NON-HDL-C 116.2 MG/DL; POTASSIUM SERUM 4.3 MMOL/L (3.5-5.1); SODIUM LEVEL 140 MMOL/L (136-145); TRIGLYCERIDES LEVEL 95 MG/DL (<150)
[2025-04-06 19:40] LABS: ESTIMATED AVERAGE GLUCOSE 137.0 MG/DL (60-110)
== END ==
LOC: M SFHCCAPE 07:09
PROVIDERS: ATTEND Physician Assistant Medical
DX: E11.9 Type 2 diabetes mellitus without complications (principal); E89.0 Postprocedural hypothyroidism; E78.00 Pure hypercholesterolemia, unspecified